=== PATIENT | male | born 1985 | race Caucasian/White ===

== ENCOUNTER 2018-08-20 18:12 | Inpatient (IN) | payer OTHER, MEDICAID ==
[~2018-08-20] VITALS: Ht 172.7 cm; Wt 123.9 kg
[2018-08-20 18:47] LABS: BASOPHIL % 0.3 % (0-2); PLATELET COUNT 267 x10^3mcL (130-400)
[2018-08-20 18:49] LABS: RED CELL DISTRIBUTION WIDTH 15.5 % (11.5-14.5)
[2018-08-20 18:59] LABS: CALCIUM 9.5 mg/dL (8.5-10.1); CARBON DIOXIDE 23.6 mmol/L (21-32); CHLORIDE SERUM 99 mmol/L (98-107); CREATININE SERUM 1.3 mg/dL (0.7-1.3); GFR1 > 60 mL/min; GLUCOSE SERUM 171 mg/dL (74-106); POTASSIUM SERUM 4.1 mmol/L (3.5-5.1); SODIUM SERUM 141 mmol/L (136-145)
[2018-08-20 19:03] LABS: ALBUMIN 4.1 g/dL (3.4-5.0); ALKALINE PHOSPHATASE 88 U/L (46-116); ALT/SGPT 75 U/L (16-63); AST/SGOT 41 U/L (15-37); BILIRUBIN TOTAL 0.7 mg/dL (0.20-1.00)
[2018-08-20 19:05] LABS: TOTAL PROTEIN, SERUM 8.5 g/dL (6.4-8.2)
--- NOTE | 2018-08-20 19:14 | NUR ---
PT AWAKE AND ALERT. PT BIBA WITH C/O C/P X8.5 HOURS WITH SOB AND ANXIETY. PT REPORTS HAVING HX OF CHEST MUSCLE SPASM BUT HAS NOT HAD ANY RELIEF FROM HOME MEDICATIONS. PT WAS DIAPHORETIC, TACHYPNEIC, AND FLUSHED UPON ARRIVAL. PER PARAMEDICS, PT WAS STABLE IN TRANSPORT ASIDE FROM BEING TACHYCARDIC. PT WAS GIVEN 0.4 NITRO SUBLINGUAL AND ASA 324MG. PT ON FULL CM. MSE COMPLETED BY DR ANNE. AT BEDSIDE
--- NOTE | 2018-08-20 19:17 | NUR ---
REPORT GIVEN TO ANTONIO LOT ASSOCIATE NURSE TO ASSUME CARE OF PT
--- NOTE | 2018-08-20 19:52 | NUR ---
PATIENT MEDICATED WITH FENTANYL FOR COMPLAIN TOF CHEST/BACK PAIN. PRESSURE PAIN 10/10.
--- NOTE | 2018-08-20 20:04 | NUR ---
PATIENT WENT FOR CT SCAN.
--- NOTE | 2018-08-20 20:48 | NUR ---
PATIENT RETURN FROM CT SCAN WITH COMPLAINT OF BACK AND CHEST PAIN . MD NOTIFIED. PATIENT NEDICATED WITH MORPHINE.
--- NOTE | 2018-08-20 21:26 | NUR ---
ON LINE RADIOLOGY CALL TO CONFIRM CRITICAL CT FINDING WAS RECEIVED. MD HANEY.
[2018-08-20] MEDS ORDERED: BACLOFEN20 MG PO (21:34)
[2018-08-20] MEDS ORDERED: OXYBUTYNIN CHLOR5 MG PO (21:34)
[2018-08-20] MEDS ORDERED: NORCO1 TA2 PO (21:36)
[2018-08-20] MEDS ORDERED: FIBER0.52 GM PO (21:36)
[2018-08-20] MEDS ORDERED: COLACE100 MG PO (21:36)
--- NOTE | 2018-08-20 22:08 | NUR ---
PATIENT MEDICATED WITH HEPARIN IVP
--- NOTE | 2018-08-20 23:16 | NUR ---
REPORT WAS GIVEN TO CLAUDETTE . PATIENT WILL BE TRANSPORTED TO ROOM 207B.
[2018-08-20 23:17] LABS: MAGNESIUM 1.5 mg/dL (1.8-2.4); PHOSPHOROUS 5.3 mg/dL (2.5-4.9)
[2018-08-20 23:18] LABS: CHOLESTEROL/HDL RATIO 2.9
--- NOTE | 2018-08-20 23:31 | NUR ---
PATIENT WAS AKED TO GIVE URINE SPECIMEN, BUT HE DOES SELF CATH AND WILL DO SAME LATER.
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
[2018-08-21] VITALS (7 sets, daily range): BP systolic 107–144; BP diastolic 70–81
--- NOTE | 2018-08-21 00:12 | NUR ---
PT C/O BACK PAIN 12/31. MORPHINE GIVEN.
--- NOTE | 2018-08-21 02:06 | NUR ---
HEPARIN DRIP INITIATED AT 1800 UNITS/HR. NEXT PTT ORDER AT 0805.
--- NOTE | 2018-08-21 03:41 | NUR ---
PT C/O CHEST PAIN 10/31, MEDICATED WITH MORPHINE.
[2018-08-21 07:01] LABS: BASOPHIL % 0.2 % (0-2); PLATELET COUNT 212 x10^3mcL (130-400)
[2018-08-21 07:18] LABS: RED CELL DISTRIBUTION WIDTH 15.6 % (11.5-14.5)
--- NOTE | 2018-08-21 07:30 | NUR ---
PT IS AAOX4. RESP EVEN AND UNLABORED. LUNG SOUNDS CTA, DIMINISHED BILATERALLY. ON N/C AT 2LPM. NO COUGH OR SOB AT THIS TIME. TELE [address] READING SINUS TACH HR 104BPM. ABDOMEN DISTENDED. BOWEL SOUNDS ACTIVE. PT STATE'S PT HAS A WOUND/REDNESS TO BUTTOCKS, PT REFUSED TO TAKE PICTURE OR ALLOW FOR ASSESSMENT, HE STATES HE IS IN TOO MUCH PAIN AND HAVING SPASMS. PERIPHERAL PULSES PALPABLE. NO EDEMA NOTED. IV CATH TO LAC PATENT WITH FLUIDS AND HEPARIN RUNNING. SITE WNL. CALL LIGHT WITHIN REACH. FALL PROTOCOL FOLLOWED. BED IN LOWEST POSITION. WILL ENDORSE ALL CARE TO NOC RN.
--- NOTE | 2018-08-21 07:30 | NUR ---
PT RESTED AT INTERVALS DURING SHIFT. NO SOB ON O2 2L VIA NC. EXPLAINED TO PT THAT BUTTOCKS/BACK NEED TO BE ASSESSED. ER REPORTED THAT SKIN IS INTACT. UPON ADMISSION ON [facility], STATES PT HAS SMALL PRESSURE ULCER ON THE RIGHT BUTTOCKS. INFORMED PT THAT PICTURE SHOULD BE TAKEN FOR ANY WOUND/PRESSURE ULCER. PT REFUSED. PT DID NOT WANT TO BE MOVED OR TURNED DUE TO PAIN EVEN AFTER PAIN MEDS. PT STATES SOON HE FEELS HE CAN, HE WILL LET THE NURSE KNOW. ENDORSED TO DAY SHIFT RN.
[2018-08-21 07:31] LABS: CALCIUM 8.8 mg/dL (8.5-10.1); CARBON DIOXIDE 20.2 mmol/L (21-32); CREATININE SERUM 1.5 mg/dL (0.7-1.3); MAGNESIUM 1.4 mg/dL (1.8-2.4); POTASSIUM SERUM 5.3 mmol/L (3.5-5.1)
--- NOTE | 2018-08-21 08:13 | NUR ---
TORADOL 30MG IVP FOR SHARP THROBBING PAIN 10/10 TO L SHOULDER, L UPPER BACK AND L SIDE OF CHEST AND ABDOMEN. PT UNABLE TO BE TOUCHED WITHOUT REACTING TO PAIN. CALL LIGHT WITHIN REACH. WILL CONTINUE TO MONITOR. AT BEDSIDE.
--- NOTE | 2018-08-21 08:23 | NUR ---
TORADOL NOTED EFFECTIVE. PT NO SLEEPING, RESP EVEN, SHALLOW AND UNLABORED. NO S/S OF DISTRESS NOTED. CALL LIGHT WITHIN REACH. AT BEDSIDE.
--- NOTE | 2018-08-21 09:18 | NUR ---
NORCO 7.5 MG PO TAKEN FOR SHARP PIERCING PAIN TO UPPER BODY. DUE MEDS GIVEN. FLUIDS ENCOURAGED. PT TAUGHT TO TURN AND REPOSITION FREQUENTLY AND EVERY 2 HOURS. PT VERBALIZED UNDERSTANDING. STATED HE HAS BEEN IN TOO MUCH PAIN TO MOVE SINCE LAST NIGHT. CALL LIGHT WITHIN REACH. AT BEDSIDE.
--- NOTE | 2018-08-21 09:56 | NUR ---
ZOFRAN 4MG IVP GIVEN OF N/V. PT STATED HIS CHEST HAS TIGHTNED AND HE HAS A FEELINGS OF ANXIETY. PT STATES HE FEELS LIKE HIS BODY DOES NOT LIKE NORCO. PT RELIEVED BY ZOFRAN. RESP EVEN AND UNLABORED. NO SOB AT THIS TIME. WILL CONTINUE TO MONITOR.
--- NOTE | 2018-08-21 10:31 | NUR ---
PT'S ABDOMINAL PAIN IS 8/10. AWATING PHARMACY TO VERIFY MORPHINE THEN IT WILL BED GIVEN.
--- NOTE | 2018-08-21 12:08 | NUR ---
DR. PATE MET WITH PT AND REQUESTED INCENTIVE SPIROMETER FOR PT. REQUESTED I/S AND I/S TRAINING FROM R/T.
--- NOTE | 2018-08-21 12:54 | NUR ---
REPORTED TO DR. SIERRA THAT PT PAIN IN NOT UNDERCONTROL. DR. SIERRA REPORTED THAT SHE WILL INCREASE THE MORPHINE. PT DANIEL AWARE.
--- NOTE | 2018-08-21 13:03 | NUR ---
COUNTY AGENT REPORTED PT'S HR 145 BPM. PT IS ANXIOUS AND STATES HE CAN NOT BREATH AND HIS PAIN IS OUT OF CONTROL. PAGED DR. SIERRA. AWAITING CALL BACK. REMAINING AT BEDSIDE WITH PT NOW.
[2018-08-21 13:22] LABS: microscopic required? YES; urine erythrocyte 3+ (NEGATIVE)
--- NOTE | 2018-08-21 13:30 | NUR ---
PT REFUSED PTT DUE TO PAIN. PT SPASMS WHEN TOUCHED. FURNITURE FABRICATOR ASKED TO RETURN IN 25 MIN SO PAIN CAN BE ADDRESSED. FURNITURE FABRICATOR AGREED.
--- NOTE | 2018-08-21 14:10 | NUR ---
TORADOL 30MG IVP FOR CHEST, ARM PAIN. WILL CONTINUE TO MONITOR.
--- NOTE | 2018-08-21 14:15 | NUR ---
AT 1315: PT BECAME ANXIOUS, STATE HE CAN'T BREATH. ATTEMPTED TO SIT UP AT BEDSIDE. PT WAS SOB, PALE, DIAPHORETIC. PANICKING. PT WAS UNABLE TO COMFORT HIMSELF. PT PULLED OFF N/C. ATTEMPTED TO OBTAIN VS BUT PT SCREAMED, " IT HURTS TOO MUCH, DON'T TOUCH ME!" CALLED FOR HELP, ANOTHER NURSE, RYLEY RN RESPONDED. APPLIED NON REBREATHER AT 15LPM. REPOSITIONED PT. AT BEDSIDE. PT RESTLESS, AGITATED, THRASHING BACK AND FORTH. CHARGE NURSE AT BEDSIDE, RAPID RESPONSE CALLED. RESP THERAPY NOTIFIED. DR. SIERRA ATTENDING RESIDENT AWARE OF ABOVE INCIDENT. RAPID RESPONSE TEAM RESPONDED IMMEDIATELY. BLOOD SUGAR: 183MGDL, VS FOLLOWS: 98.1F, HR 145, RR 34, BP 123/45, PAIN LEVEL 8/10 CHEST AND NONRADIATING. O2 SAT 98% ON 15LPM NON REBREATHING MASK. PLEASE SEE DETAILS OF RAPID RESPONSE PAPER. DR. SIERRA ORDERED LABS, CHEST XRAY, EKG STAT. AT 1340 MORPHINE 2MG IVP GIVEN. PT VERBALIZED RELIEF AFTER MORPHINE WAS GIVEN. PT STARTING CALM, ABLE TO BREATH DEEPLY AND TALK TO .
[2018-08-21 14:20] LABS: PLATELET COUNT 186 x10^3mcL (130-400)
--- NOTE | 2018-08-21 14:20 | NUR ---
CHEST XRAY COMPLETED.
--- NOTE | 2018-08-21 14:23 | NUR ---
PT RECEIVING U/S VENOUS BILATERAL LOWER EXTREMITIES AT THIS TIME.
--- NOTE | 2018-08-21 14:29 | NUR ---
REPORTED TO DR. CHAPIN THAT PT'S WBC 20.9 AND ABG pH 7.25. NO NEW ORDERS AT THIS TIME.
[2018-08-21 14:32] LABS: CALCIUM 7.9 mg/dL (8.5-10.1); CARBON DIOXIDE 24.5 mmol/L (21-32); CREATININE SERUM 2.1 mg/dL (0.7-1.3)
[2018-08-21 14:43] LABS: POTASSIUM SERUM 5.8 mmol/L (3.5-5.1)
--- NOTE | 2018-08-21 14:46 | NUR ---
PAIN REASSESED POST TORADOL IVP. PT STATES PAIN HAS IMPROVED. NOW 07/01. PT IS STILL RECEIVING VENOUS U/S.
[2018-08-21 14:56] LABS: BAND NEUTROPHIL 16 % (0-10); BASOPHIL 0 % (0-2); MONOCYTE 4 % (0-7); SEGMENTED NEUTROPHILS 73 % (37-75)
[2018-08-21 14:58] LABS: PLATELET MORPHOLOGY PLATELETS NORMAL; rbc morphology (normal/abnorm) NORMAL (NORMAL)
--- NOTE | 2018-08-21 15:20 | NUR ---
CALLED LAB TO GET UP DATE ON PROGRESS OR PTT. LAB STATED THEY ARE RUNNING THE TEST RIGHT NOW.
--- NOTE | 2018-08-21 15:53 | NUR ---
PT'S PTT IS 70.4. HEPARIN DRIP TITRATED TO 1800ML/HOUR / 18ML/HR. NEW PTT ORDERED FOR 1999. REPORTED CHEST XRAY RESULTS AND THAT U/S TECH STATED PT HAS DVT IN R LEG BUT READING STILL NEEDS TO BE COMPLETED. REPORTED TO DR. SIERRA THAT PT'S WBC =20.9, ABG pH=7.25, K+ = 5.8, AND LACTIC ACID 3.6. DR. SIERRA SAID SHE WOULD FOLLOW UP.
--- NOTE | 2018-08-21 15:53 | NUR ---
PT'S PTT IS 70.4. HEPARIN DRIP TITRATED TO 1800ML/HOUR / 18ML/HR. NEW PTT ORDERED FOR 1999. REPORTED CHEST XRAY RESULT REPORTED TO DR. SIERRA THAT PT'S WBC =20.9, ABG pH=7.25, K+ = 5.8, AND LACTIC ACID 3.6. DR. SIERRA SAID SHE WOULD FOLLOW UP.
--- NOTE | 2018-08-21 17:07 | NUR ---
VELTESSA AND INSULIN 6 UNITS IVP GIVEN.
--- NOTE | 2018-08-21 17:16 | NUR ---
ATIVAN 2MG IVP GIVEN FOR EXTREME ANXIETY. PT STATES, " I AM FEAR FOR MY LIFE, YOU CAN SEE IT."
--- NOTE | 2018-08-21 17:40 | NUR ---
PT IS SLEEPING AT THIS TIME. RESP EVEN AND UNLABORED. NO SOB. WILL CONTINUE TO MONITOR. CALL LIGHT WITHIN REACH.
--- NOTE | 2018-08-21 19:00 | NUR ---
PT IS AAOX4. PT IS SLEEPING AT TIME BUT EASILY AROUSABLE. RESP EVEN AND UNLABORED. NO DISTRESS NOTED. ON O2 AT 3LPM N/C. IV CATH TO LAC WITH FLUIDS AND HEPARIN RUNNING. SITE WNL. IV CATH TO RAC WITH ABX RUNNING. SITE WNL. TELE [address] READING SINUS TACH. BED IN LOW POSITION. CALL LIGHT WITHIN REACH. FALL PROTOCOL FOLLOWED. WILL ENDORSE ALL CARE TO NOC SHOLA.
--- NOTE | 2018-08-21 19:30 | NUR ---
PER DR SIERRA THAT PT OKAY TO HAVE SIP OF WATER AT THIS TIME.
--- NOTE | 2018-08-21 19:45 | NUR ---
BEDSIDE HANDOFF REPORT RECEIVED FROM ALEX-SHOLA, PT SEEN, ASLEEP BUT EASILY AROUSABLE, ALERT AND ORIENTED X 4 AND VERY VERBALLY RESPONSIVE, DENIES HEADACHE OR DIZZINESS, BREATHING EVEN AND UNLABORED, LUNG SOUNDS DIMINISHED, ON O2 4L VIA NC WITH CONT PUSLE OX MONITOR AND MAINTAIN SPO2 > 95%, PT DE-SATS WITH 3 LITERS, RT PROTOCOL, PULSES PALPABLE, EDEMA NOTED TO BLE, TOTAL CARE, PARAPEGLIC, ON TELE#23 STA WITH HE:130'S TO 140'S, DR SIERRA MADE AWARE, IVF INFUSING WELL, HEPARIN DRIP INFUSING @ 1800 UNITS/HR, ABD ROUND WITH ACTIVE BS, NO BM AT THIS TIME, PT WITH NEUROGENIC BLADDER, SELF CATH AT TIMES, PT WITH PRESSURE INJURY TO RT BUTTOCKS BUT PT REFUSED SKIN ASSESSMENT, NO DISTRESS NOTED, AT BEDSIDE, WILL KEEP TO MONITOR.
[2018-08-21 20:50] LABS: CALCIUM 7.9 mg/dL (8.5-10.1); CARBON DIOXIDE 19.7 mmol/L (21-32); CREATININE SERUM 2.6 mg/dL (0.7-1.3)
[2018-08-21 20:53] LABS: POTASSIUM SERUM 6.5 mmol/L (3.5-5.1)
--- NOTE | 2018-08-21 21:02 | NUR ---
DR HERNANDES MADE AWARE OF PT'S K:6.5, NO NEW ORDER RECEIVE AT THIS TIME.
--- NOTE | 2018-08-21 21:18 | NUR ---
PT'S PTT-50.5 PER HEPARIN DRIP PROTOCOL THAT NO CHANGE, NEXT PTT ORDERED @ 0030.
[2018-08-22] VITALS (11 sets, daily range): BP systolic 81–149; BP diastolic 37–91
--- NOTE | 2018-08-22 02:43 | NUR ---
PT'S PTT RESULT-58.5, PER HEPARIN DRIP PROTOCOL NO CHANGE, NEXT PTT WILL BE DAILY 06/02 AM.
--- NOTE | 2018-08-22 05:34 | NUR ---
PT ASLEEP BUT EASILY AROUSABLE, SLEPT ON AND OFF WHOLE NIGHT, IVF INFUSING WELL TO RH, C/O OF GENERALIZED BODY PAIN DURING THE SHIFT, MEDICATED WITH MORPHINE 4MG VIA IVP X 2 WITH GOOD RELIEF, PT ON O2 4L VIA NC AND ABLE TO MAINTAIN SPO2 > 95%, EASILY ANXIOUS, AT BEDSIDE, PT TOTAL ONLY HAD 150 ML URINE OUTPUT FROM SELF CATH DURING THE WHOLE NIGHT, DR HERNANDES MADE AWARE, NO NEW ORDER RECEIVE AT THIS TIME.
[2018-08-22 05:41] LABS: PLATELET COUNT 140 x10^3mcL (130-400)
[2018-08-22 05:47] LABS: CALCIUM 7.4 mg/dL (8.5-10.1); CARBON DIOXIDE 21.2 mmol/L (21-32); CREATININE SERUM 3.7 mg/dL (0.7-1.3); MAGNESIUM 1.2 mg/dL (1.8-2.4); PHOSPHOROUS 3.9 mg/dL (2.5-4.9)
[2018-08-22 05:49] LABS: POTASSIUM SERUM 6.9 mmol/L (3.5-5.1)
--- NOTE | 2018-08-22 05:50 | NUR ---
PT'S MORNING K:6.9, DR HERNANDES MADE AWARE, NO NEW ORDER RECEIVE AT THIS TIME.
[2018-08-22 05:52] LABS: AMYLASE 1117 U/L (25-115); LIPASE 3409 IU/L (73-393)
[2018-08-22 07:01] LABS: RED CELL DISTRIBUTION WIDTH 16.3 % (11.5-14.5)
--- NOTE | 2018-08-22 07:18 | NUR ---
BEDSIDE REPORT GIVEN TO ALEX-SHOLA, ALL QUESTIONS ANSWERED AND CONCERNS ADDRESSED. ENDORSED VELTASSA PO TO AM NURSE DUE TO PT TOOK BACLOFEN PO @ 0500, VELTASSA PO SCHEDULED @ 0800AM.
--- NOTE | 2018-08-22 07:20 | NUR ---
RECEIVED REPORT FROM ALEX JOLLEY(ASSIGNED TO THIS PT) THAT PT K-6.9, MG-1.2 AND URINE OUTPUT FOR 12HRS WAS ONLY 150ML. PT WITH JOHNATHAN P.E. AND JOHNATHAN DVT AND CURRENTLY ON HEPARIN DRIP. CALLED AND SPOKE TO JOSELITO(N.P.) ASSIGNED TO THIS PT AND MADE HER AWARE OF ABOVE. NEW ORDER RECEIVED TO TRANSFER PT IN ICU. ALEX JOLLEY AWARE OF ABOVE. CALLED TO ICU AND SPOKE TO RENO CHARGE NURSE AND MADE HER AWARE OF ABOVE. CALLED TO ENVIRONMENTAL ENGINEERING MANAGER(CHRISTINA) AND MADE HER AWARE OF ABOVE. PT GOING TO BED8. ALEX JOLLEY INFORMED PT OF TRANSFER.
--- NOTE | 2018-08-22 07:25 | NUR ---
EYAL PO GIVEN. PT AND PT'S AWARE THAT HE WILL BE GOING TO ICU.
--- NOTE | 2018-08-22 07:30 | NUR ---
PT IS AAOX4. RESP SHALLOW, UNLABORED. LUNG SOUNDS DIMINISHED BILATERALLY. PT ON 3 LPM N/C. NORMAL S1S2 NOTED. ABDOMEN ROUND, DISTENDED, TENDER UPON PALPATION. BOWEL SOUNDS ACTIVE X4. PT NPO. PERIPHERAL PULSES PALPABLE. NO EDEMA NOTED. PT REPORTS SKIN PROBLEM ON BUTTOCK AREA BUT REFUSES TO MOVE TO HAVE THE AREA ASSESSED PT HAVING FREQUENT SPASMS WHEN TOUCHED. DENIES PAIN MEDICATION AT THIS TIME. IV CATH TO RAC WITH FLUIDS AND HEPARIN RUNNING. SITE WNL, NO S/S OF INFECTION OR INFILTRATION. IV CATH TO LAC, N/S LOCKED. SITE WNL. AT BEDSIDE. CALL LIGHT WITHIN REACH. BED IN LOWEST POSITION.
--- NOTE | 2018-08-22 07:45 | NUR ---
MORNING LABS REVIEWED. ALL LABS TRENDING TO UNSTABLE. TRANSFERRING PT TO ICU. GAVE REPORT TO SHOLA HASTINGS WHO ASSUMED ALL CARE OF PT AND TRANSFERRED PT TO ICU.
--- NOTE | 2018-08-22 08:06 | NUR ---
TRANSFERED PT TO ICU BED 4 FOR CLOSER OBSERVATION. CONTINUES ONHEPARIN 1800 UNITS Q 1 HOUR LEFT AC. NS INFUSING 150 CC HOUR TO RT FA. ON 02 3L NC. HR 126. BP 149/67 . SAT 94 % 2L. PT ASKS TO BE LEFT ALONE AWHILE HIS MUSCLE SPASMS HAVE CALMED DOWN AND BREATHING MORE FREELY. HOB ELEVATED FOR PTS COMFORT AND REQUEST. CALL LIGHT WITHIN REACH. STALIN RN HERE TO TAKE OVER CARE.
--- NOTE | 2018-08-22 08:15 | NUR ---
RECD PT SLEEPING BUT AROUSABLE TO TOUCH. PER REPORT PT WAS [facility] AT 0742. OX4. STATES, "DONT TOUCH ME, MOVE ME, AND LEAVE ME THE WAY I AM; I HAVE VERY BAD SPASM ON MY LEGS". RESP EASY AND REGULAR; DENIES ANY PAIN AT THIS TIME BUT STATES HE FEELS HOT AND WANT A COOLER TEMP IN THE ROOM. IVF NSS AT 150 ML/HR INFUSING VIA RH SITE; HEPARIN GTT AT 1800 U (18 ML)/HR VIA LAC SITE; BOTH IVF SITES PATENT AND WITHOUT INFILTRATION. PT IS PARALYZED FROM WAIST DOWN. ABD IS ROUND AND SOFT; BS+ ON 4 QUADS; NPO EXCEPT MEDS; PT PERFORMS SELF CATH Q 4 HRS ACCDG TO HIM. NSG ASSESSMENT DONE; FALL AND SAFETY PRECAUTION REINFORCED; WILL CONTINUE TO MONITOR STATUS. GIRLFRIEND PRESENT IN THE ROOM.
--- NOTE | 2018-08-22 09:00 | NUR ---
ARBEN YEE, IS HERE AND MADE AWARE OF LAB RESULTS. MAY GIVE ICE CHIPS TO PT PER JOSELITO.
--- NOTE | 2018-08-22 10:00 | NUR ---
DR. LERMA IS ASSESSING PT; PT SIGNED THE CONSENTS FOR HEMODIALYSIS, NERI CATH PLACEMENT AND MODERATE ANESTHESIA.
--- NOTE | 2018-08-22 10:34 | NUR ---
OSCAR IN THE ROOM PERFORMING ULTRASOUND OF THE KIDNEY/RENAL; DR. GALEANO IS ALSO HERE AND TALKED TO PT.
--- NOTE | 2018-08-22 11:08 | NUR ---
PT IS NAUSEATED; ADMINISTERED ZOFRAN IV PRN.
[2018-08-22 11:39] LABS: SEGMENTED NEUTROPHILS 28 % (37-75)
[2018-08-22 11:40] LABS: BAND NEUTROPHIL 62 % (0-10); MONOCYTE 5 % (0-7); PLATELET MORPHOLOGY LARGE PLATELET SEEN; rbc morphology (normal/abnorm) ABNORMAL (NORMAL)
--- NOTE | 2018-08-22 12:10 | NUR ---
DR. GALEANO ATTEMPTED TO INSERT NERI CATH ON THE RT GROIN AND RT SUBCLAVIAN BUT UNSUCCESSFUL ATTEMPT. HE INFORMED PT THAT HE WILL INSERT THE NERI CATH AT OR.
--- NOTE | 2018-08-22 12:30 | NUR ---
MAHONEY CATHETER FR. 16 INSERTED AND OBTAINED DARK YELLOW ORANGE URINE; 50 ML CAME OUT, SPECIMEN COLLECTED AND SENT TO LAB.
--- NOTE | 2018-08-22 12:58 | NUR ---
CXR (NOW ORDER) ORDERED BY DR. CROWE TO R/O PNEUMOTHORAX.
--- NOTE | 2018-08-22 13:45 | NUR ---
PRE-OP CHECKLIST AND PRE-OP WIPES DONE; PT WAS BROUGHT TO ER FOR HEMO CATH INSERTION; REPORT GIVEN TO OR; OX4; NO SOB; ANESTHESIOLOGIST AND OR TEAM AWARE OF THE ABNORMAL LABS BRANDON POTASSIUM AND THE MEDS GIVEN. GIRLFRIEND IS PRESENT.
[2018-08-22 13:52] LABS: microscopic required? YES
[2018-08-22 13:54] LABS: urine erythrocyte 3+ (NEGATIVE)
--- NOTE | 2018-08-22 14:00 | NUR ---
JENNIFER BENNETT CALLED FOR PT WHILE HE IS IN OPERATING ROOM.
--- NOTE | 2018-08-22 14:45 | NUR ---
DR. LERMA CALLED TO INQUIRE ABOUT PT'S STATUS; DR. LERMA UPDATED.
[2018-08-22 14:56] LABS: PLATELET COUNT 115 x10^3mcL (130-400); RED CELL DISTRIBUTION WIDTH 16.4 % (11.5-14.5)
--- NOTE | 2018-08-22 15:05 | NUR ---
LAB CALLED TO INFORM WBC DECREASED TO 17.1 FROM 22.4; AND HGB IS 10.3 FROM 13.
[2018-08-22 15:16] LABS: BILIRUBIN TOTAL 1.54 mg/dL (0.20-1.00); CALCIUM 8.1 mg/dL (8.5-10.1)
[2018-08-22 15:22] LABS: CREATININE SERUM 4.7 mg/dL (0.7-1.3); TOTAL PROTEIN, SERUM 5.2 g/dL (6.4-8.2)
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
[2018-08-22 15:39] LABS: BAND NEUTROPHIL 20 % (0-10); BASOPHIL 0 % (0-2); MONOCYTE 2 % (0-7); SEGMENTED NEUTROPHILS 64 % (37-75)
[2018-08-22 15:45] LABS: rbc morphology (normal/abnorm) ABNORMAL (NORMAL)
--- NOTE | 2018-08-22 15:45 | NUR ---
JOHNATHAN SOFT WRIST RESTRAINTS APPLIED FOR PT'S SAFETY TO PREVENT PT FROM PULLING LINES AND TUBES.
[2018-08-22 15:47] LABS: PLATELET MORPHOLOGY PLATELETS DECREASED
--- NOTE | 2018-08-22 16:37 | NUR ---
RECEIVED PT IN ICU INTUBATED, PLACED ON [employer]ES[employer]E R860 VENTILATOR PER VENT SETTINGS BY DR СВЕТЛАНА TREJO IN ICU.
--- NOTE | 2018-08-22 18:33 | NUR ---
1602-STAT CXR DONE; 161-DR. RED (CORE WINDER MACHINE OPERATOR) IS HERE AND ASSESSING PT. 162-CXR RESULT CALLED TO DR. WILKINS PER HIS ORDER 170-IVFS STARTED FOLLOWS: VERSED AT 0.5 MG/ML OR 2 ML/HR, FENTANYL AT 1 MCG/KG/HR, LEVOPHED AT 2 MCG/MIN; ALL VIA RT NERI; AMIODARONE BOLUS ADMINISTERERED VIA RH IVF SITE; AFTER AMIODARONE BOLUS, IT IS FOLLOWED BY AMIODARONE GTT AT 1 MG/MIN X 6 HRS THEN 0.5 MG/MIN X18 HRS. EKG DONE AT THIS TIME. FAMIILY IN THE ROOM 174-PT CONVERTED TO NSR; PRINTOUT PLACED IN CHART. FAMILY IN THE ROOM; PT IS TOLERATING SAME SETTINGS; STILL NONRESPONIVE BUT NOT IN ANY DISTRESS 184-LEVOPHED INCREASED TO 4 MCG/MIN. BP I S 80/50 P
--- NOTE | 2018-08-22 19:05 | NUR ---
RECIEVED REPORT FROM STALIN JOLLEY. ALL QUESTIONS ANSWERED AND ADDRESSED. WILL RESUME CARE.
--- NOTE | 2018-08-22 19:30 | NUR ---
RECIEVED PT INTUBATED AND SEDATED ON VERSED @ 1MG/HR AND FENTANYL @ 1MCG/KG/HR. RESPONDS TO TACTILE AND PAINFUL STIMULUS. ETT AND OGT INTACT. ETT TO VENT: VCV/AC MODE = 100% FIO2, 550 VT, 16 RATE, 5 PEEP. BREATHING E/U. NO SIGNS OF RESP DISTRESS NOTED. NSR. S1/S2 HEART SOUNDS AUDIBLE. RIJ NERI CATH INTACT AND SECURED, DRESSING CDI. L HAND ARTERIAL LINE INTACT AND SECURED. PIV TO L HAND AND R HAND INTACT, PORTS PATENT, DRESSINGS CDI. AMIODARON INFUSING @ 1 MG/MIN, LEVOPHED INFUSING @ 4MCG/MIN, NS INFUSING @ 150 ML/HR, AND HEPARIN INFUSING @ 1800 UNITS/HR. ABD IS SOFT AND ROUNDED. F/C INTACT AND SECURED, DRAINING VIA GRAVITY. URINE IS HERB IN COLOR. POOR OUTPUT. BILATERAL SOFT WRIST RESTRAINTS APPLIED. JOINTS INTACT, NO JOINT SWELLING NOTED. X3 SIDE RAILS UP, BED IN LOWEST POSITION, HOB 30 DEGREES. SIGNIFICANT OTHER AT BEDSIDE.
--- NOTE | 2018-08-22 21:08 | NUR ---
PT HAS A TEMP OF 101.8. MEDICATED PER EMAR. COOLING MEASURES IMPLEMENTED. WILL CONTINUE TO MONITOR.
--- NOTE | 2018-08-22 23:00 | NUR ---
TITRATED AMIODARONE TO 0.5 MG/MIN. HR = 88. PT TOLERATING WELL. WILL CONTINUE TO MONITOR.
[2018-08-23] VITALS (19 sets, daily range): BP systolic 94–130; BP diastolic 37–60
--- NOTE | 2018-08-23 00:50 | NUR ---
TITRATED LEVOPHED TO 3 MCG/MIN. BP = 120/49 (73). WILL CONTINUE TO MONITOR.
--- NOTE | 2018-08-23 04:20 | NUR ---
PT HAD A MOD AMOUNT OF GREEN SOFT STOOL. PT CLEANED, CHG WIPES APPLIED, MAHONEY CARE COMPLETED, AND LINENS AND GOWN CHANGED. PT TOLERATED WELL. VS STABLE.
--- NOTE | 2018-08-23 04:36 | NUR ---
TITRATED LEVOPHED TO 2 MCG/MIN. BP = 113/46 (65). WILL CONTINUE TO MONITOR.
[2018-08-23 06:06] LABS: BILIRUBIN TOTAL 1.64 mg/dL (0.20-1.00); CARBON DIOXIDE 20.6 mmol/L (21-32); MAGNESIUM 1.8 mg/dL (1.8-2.4)
[2018-08-23 06:12] LABS: PLATELET COUNT 123 x10^3mcL (130-400); RED CELL DISTRIBUTION WIDTH 16.2 % (11.5-14.5)
[2018-08-23 06:14] LABS: ALBUMIN 2.1 g/dL (3.4-5.0); TOTAL PROTEIN, SERUM 5.8 g/dL (6.4-8.2)
[2018-08-23 06:15] LABS: CREATININE SERUM 5.7 mg/dL (0.7-1.3)
[2018-08-23 06:16] LABS: CALCIUM 5.9 mg/dL (8.5-10.1)
[2018-08-23 06:20] LABS: BAND NEUTROPHIL 17 % (0-10); MONOCYTE 5 % (0-7); SEGMENTED NEUTROPHILS 70 % (37-75)
[2018-08-23 06:22] LABS: PLATELET MORPHOLOGY PLATELETS DECREASED; rbc morphology (normal/abnorm) ABNORMAL (NORMAL)
--- NOTE | 2018-08-23 06:49 | NUR ---
TRIED CALLING FIELD SERVICE SUPERVISOR MULTIPLE TIMES BECAUSE OF CRITICAL LAB VALUES: 57.0 BUN AND 5.7 CREAT. NO ANSWER. WILL ENDORSE TO ONCOMING RN
--- NOTE | 2018-08-23 07:15 | NUR ---
GIVEN REPORT TO EVE JOLLEY. ALL QUESTIONS ANSWERED AND ADDRESSED. WILL ENDORSE CARE
--- NOTE | 2018-08-23 07:20 | NUR ---
D MUTUC SOFTWARE CONFIGURATION ENGINEER AT BEDSIDE TO ASSESS PT. UPDATED ON LABS. INFORMED OF DISTENDED/FIRM ABDOMEN. KUB ORDERED. ABG ORDERED.
--- NOTE | 2018-08-23 07:24 | NUR ---
LAB CALLED WITH PTT 72.4, HEPARIN DRIP TITRATED DOWN TO 150 U/HR PER PROTOCOL. NEXT PTT ORDERED FOR 1130. SHOLA PRADO MADE AWARE.
--- NOTE | 2018-08-23 08:49 | NUR ---
TEMPERATURE RECHECK 100.1. ICE PACKS REFRESHED.
--- NOTE | 2018-08-23 08:50 | NUR ---
FI02 TITRATED DOWN TO 50% BY RT STEPHANE. CURRENT 02 SAT 99%. NO SIGNS OF RESP DISTRESS. WILL CONTINUE TO MONITOR.
--- NOTE | 2018-08-23 09:00 | NUR ---
A LINE BP 119/46 (69), NIBP 107/55 (71) LEVOPHED TITRATED FROM 2 MCG/MIN TO 1 MCG/MIN. WILL CONTINUE TO MONITOR
--- NOTE | 2018-08-23 09:16 | NUR ---
SPOKE WITH DR. LERMA VIA TELEPHONE. UPDATED ON PT NOT RECEIVING HD DURING NIGHT AND CURRENT LABS. PER DR. LERMA ASK HD RN TO COME AND HE WILL INPUT ORDERS UPON ARRIVAL TO UNIT
--- NOTE | 2018-08-23 09:27 | NUR ---
ISOGEL MATRESS APPLIED.
--- NOTE | 2018-08-23 09:49 | NUR ---
A LINE BP 124/45 (69), NIBP 108/63 (73). LEVOPHED TITRATED FROM 1 MCG/MIN TO OFF.
--- NOTE | 2018-08-23 10:01 | NUR ---
DR. LI AT BEDSIDE SPEAKING WITH PT'S FAMILY MEMBERS. PLAN IS TO ALLOW PT TO REST ON VENTILATOR TODAY AND BEGIN ATTEMPTING CPAP TOMORROW IF PT TOLERATES.
--- NOTE | 2018-08-23 10:13 | NUR ---
TEMP RECHECK 101.5. ICE PACKS REAPPLIED. PREVIOUSLY RECEIVED TYLENOL DOSE PER EMAR.
--- NOTE | 2018-08-23 11:29 | NUR ---
A LINE 104/50 (60) NIBP 92/49 (59). LEVOPHED TURNED ON TO 0.5 MCG/MIN R/T PT'S SENSITIVITY.
--- NOTE | 2018-08-23 12:14 | NUR ---
FI02 TITRATED DOWN TO 30% BY RT STEPHANE. CURRENT 02 SAT 100%. NO SIGNS OF RESP DISTRESS. WILL CONTINUE TO MONITOR.
--- NOTE | 2018-08-23 12:49 | NUR ---
D ADRIEL RAND SEWER MADE AWARE OF KUB RESULTS
--- NOTE | 2018-08-23 12:56 | NUR ---
PTT 38.4. HEPARIN INCREASED TO 1800 UNITS/HR PER PROTOCOL. BOLUS OMITTED R/T ORIGINAL THERAPEUTIC RATE. PTT REORDERED FOR 4 HOURS
--- NOTE | 2018-08-23 13:31 | NUR ---
DR. HOANG CALLED FOR UPDATES ON PATIENT. UPDATES PROVIDED. RECIEVED NEW ORDERS TO GIVE MAGNESIUM HYDROXIDE 30 ML NG BID AND PEPCID IVP. NO INDICATION FOR PATIENT TO BE SCOPED AT THIS TIME. SHOLA PRADO MADE AWARE.
--- NOTE | 2018-08-23 13:56 | NUR ---
TEMP RECHECK 99.8. ICE PACKS REAPPLIED
--- NOTE | 2018-08-23 18:00 | NUR ---
A LINE BP 126/50 (72). LEVOPHED TITRATED FROM 0.5 MCG/MIN TO OFF
--- NOTE | 2018-08-23 18:13 | NUR ---
HD COMPLETE AT THIS TIME. 1L REMOVED. PT TOLERATED WELL
--- NOTE | 2018-08-23 18:21 | NUR ---
PTT 45. BOLUS OMITTED LAST DRAW. WILL REMAIN AT 1800 UNITS/HR. PTT REORDERED 4 HOURS FROM LAST DRAW
--- NOTE | 2018-08-23 19:05 | NUR ---
RECEIVED REPORT FROM EEV JOLLEY. ASSUMING ALL CARE
--- NOTE | 2018-08-23 19:45 | NUR ---
RECEIVED PT LAYING IN BED. PT IS INTUBATED AND SEDATED ON FENTANYL @ 1 MCG/KG/HR AND VERSED @ 0.5 MG/HR. PT RESPONDS TO TACTILE STIMULI. RSS=4. PT NOT FOLLOWING COMMANDS AT THIS TIME. NO GAG REFLEX PRESENT. PUPILS WITH SLUGGISH RESPONSE TO LIGHT, 4 MM BILAT. NO FACIAL DROOP NOTED. 7.5 ETT INTACT/SECURED, 22 CM @ LL. OGT INTACT/SECURED. RIJ NERI CATH WITH DRESSING CDI. TRACHEA MIDLINE. BREATHING IS E/U ON VENT. VENT SETTINGS: VCV/AC MODE, RATE 16, VT 550, FIO2 30%, PEEP 5. LUNGS SOUND CLEAR TO BUL AND DIMIN TO BLL. SYMMETRICAL CHEST EXPANSION NOTED. S1/S2 HEART SOUNDS AUSCULTATED. CHEST WALL EQUAL AND SYMMETRICAL. NO S/S OF CP NOTED. PT CONNECTED TO FULL FIBROUS WALLBOARD INSPECTOR, HR 101, ARTERIAL BP 123/41, MAP 66. ARTERIAL LINE NOTED TO LW ARTERIAL LINE WITH DRESSING CDI. MOD PULSES NOTED TO BUE, WEAK NOTED TO BLE. CAP REFILL < 3 SECS. LH AND RH IV IN PLACE WITH NO S/S OF INFITLRATION NOTED. LEVAQUIN INFUSING @ 100 ML/HR AND HEPARIN GTT INFUSING @ 1800 UNITS/HR. +1 PITTING EDEMA NOTED TO BLE AND NONPITTING EDEMA NOTED BUE. SKIN IS WARM AND DRY. GENERALIZED WEAKNESS. PT ON BEDREST. BILAT SOFT WRIST RESTRAINT APPLIED FOR PT SAFETY. GOOD CIRCULATION NOTED. PT PARAPLEGIC AT BASELINE. PT IS NPO AT THIS TIME. ABD IS FIRM/DISTENDED. OGT ATTACHED TO LIS WITH BILE COLORED DRAINAGE NOTED. BOWEL SOUNDS HYPOACTIVE X4 QUADRANTS. NO BM NOTED. MAHONEY IN PLACE, DRAINING VIA GRAVITY WITH HERB COLORED URINE NOTED. POOR URINE OUTPUT. RIJ NERI IN PLACE WITH DRESSING CDI. SKIN IS INTACT. ERYTHEMA NOTED TO SACRAL AREA. PT ON ISOGEL MATTRESS. AXILLARY TEMP 101.8. COOLING MEASURES IN PLACE. WILL MEDICATE WITH TYLENOL PER EMAR. FAMILY AT BEDSIDE. BED IN LOW POSITION. CALL LIGHT IN REACH. WILL CONT TO MONITOR
--- NOTE | 2018-08-23 20:22 | NUR ---
AXILLARY TEMP 101.8. PT MEDICATED WITH TYLENOL 650 MG PER EMAR. OGT SUCTION TURNED OFF AT THIS TIME. COOLING MEASURES IN PLACE. WILL CONT TO MONITOR.
--- NOTE | 2018-08-23 21:15 | NUR ---
LEGAL INVESTIGATOR AT BEDSIDE FOR PTT LAB DRAW
--- NOTE | 2018-08-23 22:35 | NUR ---
PTT 60.5. PER HEPARIN PROTOCOL, NO CHANGE TO CURRENT HEPARIN RATE. WILL ORDER PTT FOR 02:30
[2018-08-24] VITALS (17 sets, daily range): BP systolic 97–162; BP diastolic 41–99
--- NOTE | 2018-08-24 03:17 | NUR ---
AXILLARY TEMP 100.4. COOLING MEASURES REMAIN IN PLACE. PT MEDICATED WITH TYLENOL 650 MG PER EMAR. OGT SUCTION TURNED OFF AT THIS TIME. WILL CONT TO MONITOR.
--- NOTE | 2018-08-24 04:00 | NUR ---
PTT 63.1. PTT THERAPEUTIC X2. PER HEPARIN PROTOCOL, ORDER PTT DAILY. PTT ORDER ALEADY IN PLACE FOR 06:00. HEPARIN DRIP REMAINS INFUSING @ 1800 UNITS/HR
[2018-08-24 06:13] LABS: CARBON DIOXIDE 24.8 mmol/L (21-32)
[2018-08-24 06:19] LABS: CREATININE SERUM 5.6 mg/dL (0.7-1.3); PLATELET COUNT 146 x10^3mcL (130-400)
[2018-08-24 06:21] LABS: CALCIUM 5.6 mg/dL (8.5-10.1)
--- NOTE | 2018-08-24 06:30 | NUR ---
FULL BED BATH PROVIDED. GOWN AND LINENS CHANGED. ORAL, MAHONEY, AND PERICARE PROVIDED. 2 SKIN TEARS NOTED TO SACRAL AREA ALONG WITH BLISTERS. OPTIFOAM IN PLACE. PT REMAINS ON ISOGEL MATTRESS. ECCHYMOSIS NOTED TO BUE. PICTURES TAKEN AND PLACED IN THE CHART
--- NOTE | 2018-08-24 07:10 | NUR ---
REPORT GIVEN TO MARY JOLLEY FOR CONTINUITY OF CARE. ALL QUESTIONS/CONCERNS ADDRESSED AT THIS TIME. ENDORSING ALL CARE
--- NOTE | 2018-08-24 07:15 | NUR ---
PATIENT IN BED, BED IS TO THE LOWEST POSITION. PATIENT IS INTUBATED AND SEDATED ON FENTANYL INFUSING AT 1 MCG/KG/HR AND VERSED INFUSING AT 0.5 MG/HR. RSS: 4. PATIENT IS INTUBATED AT 7.5 ETT AND 22 LL. PATIENT IS VENTED ON AC MODE AT A RATE OF 16, FIO2: 30%, PEEP OF 5 AND RATE OF 16. PATIENT IS BREATHING ADEQUATELY AND THERE ARE NO SIGNS OF RESPIRTATORY DISTRESS. DRY CELL SEALER IN PLACE, NSR. PATIENT HAS A L AND R HAND IV. NS INFUSING AT 75 ML/HR, HEPARIN INFUSING AT 1800 UNITS/ HR. ARTERIAL LINE NOTED TO L HAND. PATIENT HAS A RIJ NERI, INTACT. BILATERAL SOFT WRIST RESTRAINTS. CAP REFILL LESS THAN 3 SECONDS, 2 FINGER SPACE NOTED. MAHONEY INTACT AND DRAINING POOR OUTPUT, OF DARK HERB COLOR URINE. PATIENTS HEELS ARE OFF LOADED WITH PILLOWS, FAMILY AT BEDSIDE. PATIENT STABLE, WILL CONITNUE TO MONITOR.
--- NOTE | 2018-08-24 07:15 | NUR ---
REPORT GIVEN BY SHOLA MONTOYA. ALL QUESTIONS ANSWERED.
[2018-08-24 07:36] LABS: BASOPHIL % 0 % (0-2); RED CELL DISTRIBUTION WIDTH 16.3 % (11.5-14.5)
--- NOTE | 2018-08-24 07:53 | NUR ---
AT BEDSIDE, PER INITIATE SEDATION VACATION, ALL SEDATION TURNED OFF AT THIS TIME, PRIMARY RN MARY HANEY.
--- NOTE | 2018-08-24 07:53 | NUR ---
PTT AT THIS TIME: 59.2, NO CHANGE AT THIS TIME. WILL ORDER NEXT LAB.
--- NOTE | 2018-08-24 07:54 | NUR ---
PTT THERAPEUTIC AT THIS TIME, REPEAT PTT ORDERED FOR 08/25/18 0500.
--- NOTE | 2018-08-24 09:40 | NUR ---
CALLED AT THIS TIME FOR UPDATE, PER KEEP SEDATION OFF FOR LONG PATIENT TOLERATES AND ORDER ABG FOR TOMORROW MORNING. WILL FOLLOW OUT ORDER.
--- NOTE | 2018-08-24 14:10 | NUR ---
DR RED AT [facility], ALL UPDATES PROVIDED.
--- NOTE | 2018-08-24 14:32 | NUR ---
DR MURDOCK AT BEDSIDE, ALL UPDATES PROVIDED.
--- NOTE | 2018-08-24 15:53 | NUR ---
PATIENT HAD A WATERY, LARGE BROWN BOWEL MOVEMENT. PATIENT CLEANSED, LINENS CHANGED.
--- NOTE | 2018-08-24 16:22 | NUR ---
PATIENT HAS A TEMPERATURE OF 101.5, ON TWO READINGS. PATIENT WAS GIVEN TYLENOL, SEE EMAR. AND COOLING MEASURES WERE APPLIED. WILL CONTINUE TO MONITOR.
--- NOTE | 2018-08-24 16:44 | NUR ---
NOTIFIED OF CXR RESULTS, PER HAVE RT ADVANCE ETT 4-5 CM, GET REPEAT CXR. PER IF RT CANNOT ADVANCE, HAVE ED DR REINTUBATE PATIENT.
--- NOTE | 2018-08-24 16:57 | NUR ---
ADVANCE TUBE 4CM PER DR. PATE POST CXR FOR PLACEMENT. ETT SECURED VIA HOLISTER FROM 22 TO 26 AT THE LIP LINE.
--- NOTE | 2018-08-24 19:05 | NUR ---
RECEIVED REPORT FROM MARY JOLLEY. UPDATES PROVIDED. ALL QUESTIONS ANSWERED AND ADDRESSED. WILL RESUME CARE.
--- NOTE | 2018-08-24 19:06 | NUR ---
REPORT GIVEN TO SHOLA GRIJALVA ALL UPDATES PROVIDED.
--- NOTE | 2018-08-24 19:07 | NUR ---
RECEIVED REPORT FROM MARY JOLLEY. UPDATES PROVIDED. ALL QUESTIONS ANSWERED AND ADDRESSED. WILL RESUME CARE.
--- NOTE | 2018-08-24 19:07 | NUR ---
REPORT GIVEN TO SHOLA GRIJALVA. ALL QUESTIONS ANSWERED.
--- NOTE | 2018-08-24 19:10 | NUR ---
RECIEVED PT INTUBATED WITH NO SEDATION. UNABLE TO FOLLOW COMMANDS. RESPONDS TO TACTILE AND PAINFUL STIMULUS. RSS = 5. PUPILS 4MM IN SIZE AND SLUGGISH IN RESPONSE TO LIGHT. 8.0 ETT @ 26 LL. ETT TO VENT: VCV/AC MODE = 550 VT, 16 RATE, 5 PEEP, 30% FIO2. BREATHING EVEN AND UNLABORED. SYMMETRICAL CHEST WALL EXPANSION NOTED. NO SIGNS OF RESP DISTRESS NOTED. NORMAL SINUS RHYTHM. NO S/S OF CHEST PAIN PER FLACC. RIJ NERI CATHETER INTACT AND SECURED, DRESSING CDI. OGT INTACT AND SECURED WITH GREEN OUTPUT NOTED TO SUCTION CANISTER. TRACHEA MIDLINE. NO JVD PRESENT. SKIN IS WARM/MOIST, ESCOTO/BROWN IN COLOR. +1 EDEMA NOTED TO BUE AND BLE. ABD IS ROUND AND DISTENDED. NO S/S OF N/V OR ABD PAIN. F/C INTACT AND DRAINING VIA GRAVITY. URINE IS HERB IN COLOR. POOR OUTPUT NOTED. NO PENILE DISCHARGE OR SCROTAL EDEMA NOTED. X3 SIDE RAILS UP, BED IN LOWEST POSITION, HOB 30 DEGREES, CALL LIGHT WITHIN REACH. SIGNIFICANT OTHER AND FAMILY AT BEDSIDE.
--- NOTE | 2018-08-24 20:15 | NUR ---
PT TEMPERATIRE OF 101.6. COOLING MEASURES IN PLACE AND MEDICATED WITH TYLENOL 650 MG PER EMAR. WILL CONTINUE TO MONITOR.
[2018-08-25] VITALS (18 sets, daily range): BP systolic 117–160; BP diastolic 54–87
--- NOTE | 2018-08-25 01:40 | NUR ---
PT HAD A LARGE SOFT AND DARK BROWN/GREEN STOOL. PT CLEANED, COMPLETE BED BATH GIVEN, LINENS CHANGED, MAHONEY CARE COMPLETED, AND CHG WIPES APPLIED. AFTER TURNING HIM SUPINE, PT THEN HAD A LARGE WATERY LOOSE BM AGAIN. FLEXISEAL OBTAINED AND INSERTED, DRAINING DARK BROWN WATERY STOOL. PT TOLERATED WELL. X2 COMPLETE BED BATH, LINENS CHANGED, AND GOWN CHANGED. WILL CONTINUE TO MONITOR.
[2018-08-25 05:31] LABS: PLATELET COUNT 179 x10^3mcL (130-400)
[2018-08-25 05:34] LABS: BASOPHIL % 0 % (0-2); RED CELL DISTRIBUTION WIDTH 16.5 % (11.5-14.5)
[2018-08-25 05:50] LABS: POTASSIUM SERUM 4.2 mmol/L (3.5-5.1)
[2018-08-25 05:55] LABS: CREATININE SERUM 6.3 mg/dL (0.7-1.3)
[2018-08-25 05:56] LABS: CALCIUM 5.5 mg/dL (8.5-10.1)
--- NOTE | 2018-08-25 06:03 | NUR ---
CRITICAL LAB VALUES: CREAT - 6.3, BUN - 67, CA - 5.5. DR. OCONNOR MADE AWARE VIA PAGE GATE.
--- NOTE | 2018-08-25 06:28 | NUR ---
PTT OF 23.4. 7700 UNIT BOLUS RECEIVED AND HEPARIN INCREASED TO 2300 UNITS/HR. PTT REORDERED IN 4 HOURS.
--- NOTE | 2018-08-25 07:00 | NUR ---
RESTRAINTS OFF TO BL WRISTS.
--- NOTE | 2018-08-25 08:35 | NUR ---
AX TEMPT 100.5, WILL MEDICATE PER EMAR. COOLING MEASURES IMPLEMENTED, COLD COMPRESS TO BL ARM PITS AND NO BLANKETS.
--- NOTE | 2018-08-25 08:50 | NUR ---
DEXTER JOLLEY HD AT BEDSIDE SETTING FOR HD.
--- NOTE | 2018-08-25 09:13 | NUR ---
MEDICATED PT VAI OGT, INTERMITTENT SUCTION ON HOLD.
--- NOTE | 2018-08-25 09:21 | NUR ---
VENT SETTING RATE FOUND TO BE 16 PER ORDER IT'S 14, RATE SETTING CHANGED FROM 16 TO 14. MADE AWARE TO STEPHANE LEO
--- NOTE | 2018-08-25 12:12 | NUR ---
HD COMPLETED PER DEXTER RN REMOVED 3L OF FLUIDS POST HD B/P 139/79 HR 110
--- NOTE | 2018-08-25 12:13 | NUR ---
PTT 31.2 PER PROTOCOL TO REBOLUS PT 7700U OF HEPARIN AND INCREASE DRIP BY 500U, INCREASE HEPARIN FROM 2300U/HR TO 2800U/HR VERFIFIED WITH KASSY JOLELY.
--- NOTE | 2018-08-25 13:28 | NUR ---
PROVIDED UPDATES TO DR. MURDOCK RECIEVED NO NEW ORDERS.
--- NOTE | 2018-08-25 13:37 | NUR ---
PER DR. PATE TO ORDER VITAL AF 1.2 AT 10ML/HR WITH FWF 50ML Q4HRS GOAL FEED TO 35ML/HR. WILL ENTER ORDER
--- NOTE | 2018-08-25 13:55 | NUR ---
Initial Nutition Assesment: (IC04-A) LU WONG IA MR Dx: Acute pulmonary embolism PMHx: Paraplegic PSHx: None Labs: B H, BUN: 76 H, Cr: 6.3 H, Alb 2.1 L Meds: Ativan, Colace, Ditropan, Milk of magnesia, pepcid, zofran Diet: NPO (possible pancreatitis) PO Intake: NPO since admission Ht: 68 in Wt: 308# BMI: 46.9 Bed scale: IBW: 154# %IBW: 200% UBW: 250# Age: 32 Food Allergies: NKFA Skin: Skin warm to touch. Optifoam to sacral is CDI. Christopher: 10 Edema: BUE, BLE GI: intermittent suction OGT. Dark green output noted. Last BM: loose, large watery (08/25) RD Visit (08/25): Visited pt, spoke with significant other. SO stated pt's UBW is around 250#, has no allergies, and has not noticed any wt change. Pt has been NPO since admission. Pt has been cleared by GI to begin TF via OG tube, per RN. RN stated will start Vital 1.2 @30 mL/hr and will increase per pt tolerate, RD will adjust as recommended. No plan to run propofol at this time. Problem with N/V/D/C: None Problems with: Chewing: NPO Swallowing: NPO Current appetite: NPO Recent wt change: Not able to assess %wt change: Not able to assess Vitamin/supplement use: None Special diet at home: None Physical activity: N/A Nutrition education given: None given at this time. Food-drug interactions: Ativan: limit caffeine <400-500 mg. MOM/Colace: high fiber w/ 1.5-2 L/day to prevent consitpation. Education given: None given at this time. Estimated Nutrirtional Needs Based on body weight 140kg: Energy: 3790-4842 kcal/d (25-30 kcal/kg) vs 2734 kcal/day ([address]. Equation for ventilator) Protein: 140-168 g/d (1.0-1.2 g/kg) Fluid: 0631-1669 mL/d (1 mL/kcal) Nutrition Diagnosis: Inadequate protein-energy intake r/t NPO status AEB no nutrition >3 days. Intervention: 1. If already started, adjust TF via OG tube to Jevity 1.2 @30 mL/hr to goal of 90 mL/hr: increase rate by 10mL Q6hrs, per pt tolerate. a. This will provide 2160 mL, 2592 kcal, 120g Pro, 1743 mL H20 2. Add ProSource BID. a. This will provide 120 kcal, 30g Pro 3. Add 150mL H20 flush Q4hrs. 4. Total TF will provide: 2712 kcal, 150g Pro, 2643mL H20 Monitor/Evaluate: Goal: PO Intake at least 75% of estimated needs Monitor: PO intake, Labs, GI function F/U in 2-3 days at high risk
--- NOTE | 2018-08-25 15:30 | NUR ---
RECEIVE PATIENT FROM RN MIN.
--- NOTE | 2018-08-25 16:00 | NUR ---
REASSESSMENT DONE. OBTUNDED. AROUSABLE TO PAIN STIMULI BUT DOES NOT FOLLOW COMMAND. NO SIGNS OF PAIN OR AGITATION. ON VENTILATOR, TOLERATING CURRENT SETTINGS WELL. O2 SAT 100%. SR ON MONITOR. SBP IN 140'S-160'S. NO ECTOPY NOTED. OGT PATENT, INTACT, AND CLAMPED. FC PATENT, INTACT, AND DRAINING SMALL AMOUNT OF DARK HERB URINE. RECTAL TUBE PATENT, INTACT, AND DRAINING BROWN LIQUID STOOL. HOB ELEVATED. AT BEDSIDE. UPDATED OF STATUS AND PLAN OF CARE. WILL CONTINUE TO MONITOR.
--- NOTE | 2018-08-25 16:16 | NUR ---
SCREEN FOR LOW MEGAN SCALE CHART REVIEW DONE WITH THIS 32 Y/O MALE PT READMITTED TO [facility] WITH INITIAL DX OF CHEST PAIN. PAST MEDICAL HX INCLUDES PARAPLEGIA FROM [facility]. YENNYIENCHRISTINA Marie AND BROTHER, MIGUEL AT BED SIDE [facility] PROVIDED THAT PT HAS A BOIL AT HOME ON HIS LEFT BUTTOCK. EXPLANS TO FAMILY THE PT. SKIN CHANGE OF CONDITION WITH PLAN OF CARE DISCUSSED. WELL CONTROL INSTRUCTOR. NOTIFIED. INTEGUMENTARY: -LEFT UPPER BUTTOCK OPEN WOUND (PREVIOUS BOIL) 0.5X0.5X0.1CM WOUND BED IS PINK, NO ODOR, AREA MOIST. -LEFT INNER BUTTOCK MAD WITH SUPERFICIAL LAYER SKIN LOSS 1X0.5X0.1CM, VICK WOUND SKIN DENUDED. -PRESSURE ULCER INJURY STAGE 2 TO RIGHT BUTTOCKS WITH MULTIPLE CLEAR FLUIDS FILLED BLISTERS, VICK WOUND SKIN DARK PURPLE WITH DEDNUDED SKIN INDICATED FURTHER DAMAGE. RECOMMENDATIONS: -KEEP SKIN DRY AND CLEAN AT ALL TIMES, PLEASE CHECK Q2H AND PRN -CLEANSE RIGHT AND LEFT BUTTOCKS WOUNDS WITH WOUND CARE SOLUTION, PAT DRY AND COVER WITH OPTIFOAM DRESSING QD AND PRN IF SOILING -APPLY HEEL PROTECTOR TO LEFT/RIGHT HEEL AT ALL TIMES -OFFLOAD LEFT HEEL BY PLACING PILLOWS UNDER CALVES UNLESS OTHERWISE CONTRAINDICATED -PRESSURE REDISTUBUTION SURFACE THERAPY -TURN AND REPOSITION Q2H, OFFLOAD SACRALCOCCYX BY TURNING RIGHT AND LEFT -CONTINUE TO FOLLOW RD RECOMMENDATIONS PLEASE CONTACT WOUND CARE NURSE FOR ANY QUESTION AND CHANGE OF WOUND CONDITION.
--- NOTE | 2018-08-25 17:51 | NUR ---
RECEIVE REPORT FROM MATIAS IN THE LABORATORY REGARDING PTT >150. VACUUM BOTTLE ASSEMBLER KARINA MADE AWARE OF THE RESULT. HEPARIN DRIP TURN OFF PER PROTOCOL. PTT IS ORDER BY VACUUM BOTTLE ASSEMBLER KARINA TO BE REPEATED AT 2000 TONIGHT.
--- NOTE | 2018-08-25 19:10 | NUR ---
RECEIVED REPORT FROM KAREEM JOLLEY. WILL RESUME CARE.
--- NOTE | 2018-08-25 19:20 | NUR ---
REPORT GIVEN TO CRUSHER PLANT OPERATOR RN, SHOLA SCOTT.
--- NOTE | 2018-08-25 19:30 | NUR ---
NEPRO OGT FEEDING INCREASED FROM 20ML/HR TO 30ML/HR. NO RESIDUAL NOTED.
--- NOTE | 2018-08-25 20:12 | NUR ---
NAVY FIGHTER PILOT AT BEDSIDE FOR BLOOD DRAW.
--- NOTE | 2018-08-25 20:50 | NUR ---
PTT 31.0. PER PROTOCOL REBOLUS 7700 UNITS AND INCREASE GTT BY 500U. HEPARIN GTT INCREASED FROM 2800U/HR TO 3300U/HR. NEW ORDER PLACED FOR PTT LAB IN 4 HOURS.
--- NOTE | 2018-08-25 23:27 | NUR ---
AXILLARY TEMP OF 101.2. PT GIVEN TYLENOL 650MG VIA OGT. COOLING MEASURES IN PLACE. WILL CONTINUE TO MONITOR.
[2018-08-26] VITALS (19 sets, daily range): BP systolic 123–169; BP diastolic 61–110
--- NOTE | 2018-08-26 01:15 | NUR ---
PTT 73.7. DECREASED HEPARIN INFUSION FROM 3300U/HR TO 3000U/HR PER PROTOCOL.
--- NOTE | 2018-08-26 01:35 | NUR ---
NEPRO OGT FEEDING INCREASED FROM 30ML/HR TO 40ML/HR. 5CC OF RESIDUAL NOTED. PT TOLERATING FEEDING WELL. NO N/V.
[2018-08-26 05:38] LABS: BASOPHIL % 0.5 % (0-2); PLATELET COUNT 263 x10^3mcL (130-400)
[2018-08-26 05:43] LABS: CALCIUM 6.8 mg/dL (8.5-10.1); CARBON DIOXIDE 20.1 mmol/L (21-32); MAGNESIUM 2.4 mg/dL (1.8-2.4); POTASSIUM SERUM 3.9 mmol/L (3.5-5.1)
[2018-08-26 05:44] LABS: RED CELL DISTRIBUTION WIDTH 15.5 % (11.5-14.5)
[2018-08-26 05:48] LABS: CREATININE SERUM 5.6 mg/dL (0.7-1.3)
--- NOTE | 2018-08-26 06:01 | NUR ---
PT AGITATED AND BP INCREASED TO 167/97(108), HR 104. GIVEN ATIVAN 2MG IVP. WILL CONTINUE TO MONITOR.
--- NOTE | 2018-08-26 06:49 | NUR ---
PTT 80.6. DECREASED HEPARIN INFUSION FROM 3000U/HR TO 2700U/HR PER PROTOCOL.
--- NOTE | 2018-08-26 07:10 | NUR ---
GAVE REPORT TO RENO JOLLEY. ALL QUESTIONS AND CONCERNS ADDRESSED.
--- NOTE | 2018-08-26 07:15 | NUR ---
RECIEVED REPORT FROM SHOLA SCOTT TO ASSUME ALL CARES. ALL QUESTIONS AND CONCERNS ADDRESSED. PATIENT IS LETHARGIC. ETT TO VENT. RESPIRATIONS ARE EQUAL AND SYMMETRICAL. NO SIGNS OF RESP DISTRESS. LEFT RADIAL ARTERIAL LINE IN PLACE AND SECURED WITH DRESSING C/D/I. IV FLUIDS INFUSING TO LEFT HAND IV WITH NO SIGNS OF INFILTRATION NOTED. HEPARIN DRIP INFUSING AT 2700 U/HR. RIJ NERI CATH IN PLACE/SECURED WITH DRESSING C/D/I. IV TO RIGHT HAND IN PLACE AND SALINE LOCKED. FLEXI-SEAL IN PLACE DRAINING WATERY BROWN STOOL VIA GRAVITY. F/C IN PLACE AND SECURED DRIANING MINIMAL TEA-COLORED URINE VIA GRAVITY. PATIENT POSITIONED SUPINE OFFLOADED WITH PILLOWS AND HOB ELEVATED 45 DEGREES. ISOGEL MATRESS IN USE. NEPRO TUBE FEEDINGS INFUSING VIA OGT. BED TO LOWEST POSITION, SIDE RAILS UP X3, CALL LIGHT WITHIN REACH. PATIENT'S GIRLFRIEND AT BEDSIDE AND SUPPORTIVE IN CARE. WILL CONTINUE TO MONITOR.
--- NOTE | 2018-08-26 09:56 | NUR ---
PTT >150. HEPARIN GTT PLACED ON HOLD AT THIS TIME. PRIMARY RN RENO MADE AWARE. PTT DRAW ORDERED FOR TWO HOURS FROM NOW
--- NOTE | 2018-08-26 10:35 | NUR ---
NEPRO TUBE FEEDINGS TITRATED UP TO 50 ML/HR. WILL CONTINUE TO MONITOR.
--- NOTE | 2018-08-26 11:02 | NUR ---
LEFT RADIAL ARTERIAL LINE DC'D WITH CATH TIP INTACT. PATIENT TOLERATED WELL. WILL CONTINUE TO MONITOR.
--- NOTE | 2018-08-26 11:55 | NUR ---
DR. MURDOCK AT BEDSIDE TO ASSESS PATIENT. UPDATES PROVIDED AND POC DISCUSSED. WILL CONTINUE TO MONITOR.
--- NOTE | 2018-08-26 12:26 | NUR ---
CALDERON, HEMODIALYSIS NURSE MADE AWARE PATIENT HAD DIALYSIS ORDERS FOR TOMORROW.
--- NOTE | 2018-08-26 15:15 | NUR ---
LAB CALLED WITH PTT 48.8. HEPARIN DRIP RESTARTED AT INITIAL RATE OF 1800 U/HR. NEXT PTT ORDERED FOR 1914. WILL CONTINUE TO MONITOR.
--- NOTE | 2018-08-26 19:05 | NUR ---
RECEIVED REPORT FROM RENO JOLLEY. ASSUMING ALL CARE
--- NOTE | 2018-08-26 19:20 | NUR ---
RECEIVED PT LAYING IN BED. PT INTUBATED AND ON NO SEDATION. PT RESPONDS TO PAINFUL STIMULI, ATTEMPTS TO ELEVATE UPPER EXTREMITIES. PT NOT FOLLOWING COMMANDS AT THIS TIME. PUPILS WITH SLUGGISH RESPONSE TO LIGHT, 4 MM BILAT, DOES NOT TRACK. PT IS LETHARGIC. NO FACIAL DROOP NOTED. GAG REFLEX PRESENT. 7.5 ETT INTACT/SECURED, 26 CM @ LL. OGT IN PLACE/SECURED. TRACHEA MIDLINE. DRY ORAL MUCOSA. ORAL CARE PROVIDED PER VAP PROTOCOL. ETT TO VENT. VENT SETTINGS: VCV/AC MODE, RATE 16, VT 550, PEEP 5, FIO2 40%. BREATHING IS E/U. COARSE CRACKLES NOTED TO BUL AND DIMIN LUNG SOUNDS NOTED TO BLL. SYMMETRICAL CHEST EXPANSION NOTED. S1/S2 HEART SOUNDS AUSCULTATED. CHEST WALL EQUAL AND SYMMETRICAL. NO S/S OF CP NOTED. HR 118, BP 133/97, MAP 118. PALPABLE PULSES X4 EXTREMITIES. SKIN IS WARM AND DRY. + 2 PITTING EDEMA NOTED TO BLE AND NONPITTING EDEMA NOTED TO BUE. LH AND RH IV'S IN PLACE WITH NS INFUSING @ 75 ML/HR AND HEPARIN GTT INFUSING @ 1800 UNITS/HR. PT ON BEDREST. GENERALIZED WEAKNESS. PT PARAPLEGIC AT BASELINE. NO JOINT SWELLING/DEFORMITY NOTED. PT ON ISOGEL MATTRESS. PT ON NEPRO TF @ 50 ML/HR WITH 50 CC FWF Q4H. GRV=15, REPLACED. TOLERATING WELL. NO N/V NOTED. ABD IS DISTENDED/FIRM. BOWEL SOUNDS ACTIVE X4 QUADRANTS. FLEXISEAL IN PLACE, DRAINING VIA GRAVITY WITH BROWN WATERY STOOL NOTED. MAHONEY IS INTACT/SECURED, DRAINING VIA GAVITY WITH DARK HERB COLORED URINE POOR. URINE OUTPUT. RIJ NERI CATH IN PLACE WITH DRESSING CDI. 2 SKIN TEARS TO SACRAL AREA ALONG WITH BLISTERS NOTED, OPTIFOAM IN PLACE. ECCYMOSIS NOTED TO BUE. PT REPOSITIONED Q2H AND PRN FOR COMFORT. FAMILY AT BEDSIDE. BED IN LOW POSITION. CALL LIGHT IN REACH. WILL CONT TO MONITOR
--- NOTE | 2018-08-26 19:26 | NUR ---
PT'S AXILLARY TEMP 102.5. PT MEDICATED WITH TYLENOL 650 MG PER EMAR. COOLING MEASURES IN PLACE. WILL CONT TO MONITOR
--- NOTE | 2018-08-26 19:37 | NUR ---
DR. OCONNOR MADE AWARE PT QUALIFIES FOR SEPSIS PER SEPSIS SCREENING. UPDATED ON PT'S CURRENT STATUS. MADE AWARE PT'S AXILLARY TEMP IS 102.5 AND PT WAS MEDICATED WITH TYLENOL PER EMAR. PT'S CURRENT HR 118. NO NEW ORDERS.
--- NOTE | 2018-08-26 21:26 | NUR ---
PTT 41.5. PT REBOLUSED 5100 UNTIS IV PER HEPARIN PROTOCOL. HEPARIN DRIP INCREASED TO 2100 UNITS/HR. PTT ORDERED FOR 01:30.
--- NOTE | 2018-08-26 22:30 | NUR ---
GRV=20. NEPRO TF ADVANCED TO 60 ML/HR WITH 50 CC FWF Q4H. WILL CONT TO MONITOR
[2018-08-27] VITALS (18 sets, daily range): BP systolic 119–184; BP diastolic 54–99
--- NOTE | 2018-08-27 01:12 | NUR ---
AXILLARY TEMP 101.4. PT MEDICATED WITH TYLENOL 650 MG PER EMAR. COOLING MEASURES REMAIN IN PLACE. WILL CONT TO MONITOR.
--- NOTE | 2018-08-27 01:45 | NUR ---
SURGICAL ELASTIC KNITTER AT BEDSIDE FOR PTT LAB DRAW
--- NOTE | 2018-08-27 02:40 | NUR ---
CALLED LAB IN REGARDS TO PTT RESULTS. PER MIXER ATTENDANT, PTT IS 55.9. HEPARIN GTT IS THERAPEUTIC X1. NO CHANGE TO CURRENT HEPRAIN DRIP PER PROTOCOL. WILL ORDER PTT FOR 06:30
--- NOTE | 2018-08-27 02:40 | NUR ---
CALLED LAB IN REGARDS TO PTT RESULTS. PER MOLD CARRIER, PTT IS 55.9. PTT IS THERAPEUTIC X1. NO CHANGE TO CURRENT HEPARIN GTT PER PROTOCOL. WILL ORDER PTT FOR 06:30
--- NOTE | 2018-08-27 02:42 | NUR ---
CALLED LAB IN REGARDS TO PTT RESULTS. PER MAMMOGRAPHY TECHNOLOGIST, PTT IS 55.9. PTT IS THERAPEUTIC X2. WILL ORDER PTT DAILY PER HEPARIN PROTOCOL. PTT ORDERED FOR 05:00
--- NOTE | 2018-08-27 03:35 | NUR ---
GRV=10. NEPRO TF ADVANCED TO GOAL RATE OF 65 ML/HR WITH 50 CC FWF Q4H. WILL CONT TO MONITOR
--- NOTE | 2018-08-27 05:32 | NUR ---
FULL BED BATH PROVIDED. GOWN AND LINENS CHANGED. PERICARE, ORAL, AND MAHONEY CARE PROVIDED. HEELS OFFLOADED. TUBE FEEDING CHANGED. FAMILY AT BEDSIDE. BED IN LOW POSITION. CALL LIGHT IN REACH. WILL CONT TO MONITOR.
[2018-08-27 05:56] LABS: PLATELET COUNT 370 x10^3mcL (130-400)
[2018-08-27 06:01] LABS: BASOPHIL % 0 % (0-2); RED CELL DISTRIBUTION WIDTH 16.8 % (11.5-14.5)
[2018-08-27 06:04] LABS: CARBON DIOXIDE 22.9 mmol/L (21-32); MAGNESIUM 2.4 mg/dL (1.8-2.4); POTASSIUM SERUM 3.7 mmol/L (3.5-5.1)
[2018-08-27 06:08] LABS: CREATININE SERUM 7.2 mg/dL (0.7-1.3)
--- NOTE | 2018-08-27 06:18 | NUR ---
CALLED LAB IN REGARDS TO PTT RESULTS. NO RESPONSE. WILL ATTEMPT TO CALL AGAIN
--- NOTE | 2018-08-27 06:45 | NUR ---
CALL LAB FOR PTT LAB RESULTS WITH NO ANSWER
--- NOTE | 2018-08-27 07:00 | NUR ---
CALLED LAB FOR PTT LAB RESULTS. PER SEPTIC TANK INSTALLER, PTT 45.2. WILL ORDER PTT FOR 09:00
--- NOTE | 2018-08-27 07:05 | NUR ---
REPORT GIVEN TO RENO JOLLEY FOR CONTINUITY OF CARE. ALL QUESTIONS/CONCERNS ADDRESSED AT THIS TIME. ENDORSING ALL CARE
--- NOTE | 2018-08-27 10:38 | NUR ---
LAB CALLED WITH PTT RESULT 104.6. LAB CALLED FOR PTT TO BE REDRAWN. HEPARIN DRIP REMAINS INFUSING AT 2100 U/HR. NO CHANGES MADE. WILL WAIT FOR NEW PTT RESULT. WILL CONTINUE TO MONITOR.
--- NOTE | 2018-08-27 11:26 | NUR ---
HEMODIALYSIS DONE WITH 3L OUT. VSS. PATIENT TOLERATED WELL. WILL CONTINUE TO MONITOR.
--- NOTE | 2018-08-27 12:00 | NUR ---
RECIEVED PTT RESULT 41.4. HEPARIN 5100 UNITS IVP GIVEN, HEPARIN DRIP REMAINS INFUSING AT 2100 U/HR. NEXT PTT ORDERED FOR 1600 TODAY. CONTINUE TO MONITOR.
--- NOTE | 2018-08-27 12:00 | NUR ---
PATIENT PLACED ON C-PAP 12/26 BY RT RENATO. WILL CONTINUE TO MONITOR.
--- NOTE | 2018-08-27 12:55 | NUR ---
PATIENT'S TEMPORAL TEMP IS 100.4 F. ARBEN MILLIGAN MADE AWARE. PLAN IS NOT TO GIVE TYLENLOL, WATCH TEMP. IF TEMP IS GREATER THAN 101 F, ORDERS TO OBTAIN BLOOD CULTURES X2 (5-10 MINUTES APART) GIVEN. WILL FOLLOW AND CONTINUE TO MONITOR.
--- NOTE | 2018-08-27 13:52 | NUR ---
TEMPORAL TEMP 102.1 F. BLOOD CULTURE'S ORDERED. WILL WAIT FOR BLOOD CULTURES TO BE DONE BEFORE GIVING TYLENLOL. WILL CONTINUE TO MONITOR.
--- NOTE | 2018-08-27 14:42 | NUR ---
22 G IV WRIST IV INSERTED BY SHOLA PRADO. IV FLUSHES WELL WITH NO SIGNS OF INFILTRATION NOTED. WILL CONTINUE TO MONITOR.
--- NOTE | 2018-08-27 19:15 | NUR ---
RECIEVED REPORT FROM RENO JOLLEY. UPDATES PROVIDED. ALL QUESTIONS ANSWERED AND ADDRESED. WILL RESUME CARE.
--- NOTE | 2018-08-27 19:15 | NUR ---
RECIEVED PT INTUBATED WITH NO SEDATION. UNABLE TO FOLLOW COMMANDS. RESPONDS TO TACTILE AND PAINFUL STIMULUS. PUPILS 3MM IN SIZE AND SLUGGISH IN RESPONSE. 7.5 ETT @ 26 LL. ETT TO VENT: VCV/AC MODE = 5 PEEP, 16 RATE, 550 VT, 40% FIO2. BREATHING IS EVEN AND UNLABORED. SYMMETRICAL CHEST WALL EXPANSION NOTED. NO SIGNS OF RESPIRATORY DISTRESS NOTED. OGT INTACT AND SECURED, CONNECTED TO NEPRO TUBE FEEDING INFUSING @ 65 ML/HR WITH FWF OF 50 Q4H. TOLERATING WELL. NO S/S OF N/V OR ASPIRATION. RIJ NERI INTACT AND SECURED, DRESSING CDI. TRACHEA MIDLINE. NO JVD PRESENT. SKIN IS WARM/MOIST TO TOUCH, ESCOTO/BROWN IN COLOR. +1 NON-PITTING EDEMA NOTED TO BUE, +1 PITTING EDEMA NOTED TO BLE. ABD IS ROUND AND DISTENDED. FLEXISEAL IN PLACE AND DRAINING BROWN WATERY STOOL. F/C INTACT AND DRAINING VIA GRAVITY. URINE IS HERB IN COLOR WITH SEDIMENTS NOTED. POOR OUTPUT NOTED. NO PENILE DISCHARGE OR SCROTAL EDEMA NOTED. ECCHYMOSIS NOTED TO BUE AND JOSEPH. OPEN AND CLOSED BLISTERS NOTED TO SACRUM AREA WITH OPTIFOAM AND VERSATEL DRESSING CDI. PIV TO R HAND INTACT, PORT PATENT, DRESSING CDI. NS INFUSING @ 75 ML/HR AND HEPARIN INFUSING @ 2100 UNITS/HR. HOB 30 DEGREES, X3 SIDE RAILS UP, CALL LIGHT WITHIN REACH, BED IN LOWEST POSITION. GIRLFRIEND AT BEDSIDE.
--- NOTE | 2018-08-27 20:19 | NUR ---
PT HAS A TEMP OF 102. 650 MG OF TYLENOL GIVEN PER EMAR. COOLING MEASURES IMPLEMENTED. WILL CONT TO MONITOR.
--- NOTE | 2018-08-27 21:49 | NUR ---
PTT OF 50. NO CHANGE REQUIRED FOR HEPARIN GTT PER PROTOCOL. HEPARIN GTT REMAINS INFUSING @ 2100 UNITS/HR. WILL CONT TO MONITOR
--- NOTE | 2018-08-27 22:30 | NUR ---
DR. HAWTHORNE AT BEDSIDE. UPDATES PROVIDED AND ALL QUESTIONS ANSWERED. ORDERS TO D/C FLAGYL AND LEVAQUIN AND START ZOSYN. UA, URINALYSIS, AND RESP CULTURES TO BE COLLECTED. NO OTHER NEW ORDERS AT THIS TIME.
[2018-08-28] VITALS (18 sets, daily range): BP systolic 133–169; BP diastolic 70–98
--- NOTE | 2018-08-28 04:45 | NUR ---
FULL BED BATH GIVEN. GOWN CHANGED, LINEN CHANGED, CHG WIPES APPLIED, AND MAHONEY CARE COMPLETED. PT TOLERATED WELL. NO ACUTE SIGNS OF DISTRESS.
--- NOTE | 2018-08-28 05:26 | NUR ---
PT TEMP OF 102. ACETAMINOPHEN 650 MG GIVEN PER EMAR. COOLING MEASURES INITIATED. WILL CONT TO MONITOR
[2018-08-28 06:02] LABS: PLATELET COUNT 483 x10^3mcL (130-400); RED CELL DISTRIBUTION WIDTH 16.2 % (11.5-14.5)
[2018-08-28 06:15] LABS: BAND NEUTROPHIL 6 % (0-10); CALCIUM 7.8 mg/dL (8.5-10.1); CARBON DIOXIDE 22.2 mmol/L (21-32); MAGNESIUM 2.1 mg/dL (1.8-2.4); METAMYELOCTE 2 % (0-2); MONOCYTE 3 % (0-7); MYELOCYTE 1 % (0-2); POTASSIUM SERUM 3.4 mmol/L (3.5-5.1); SEGMENTED NEUTROPHILS 84 % (37-75)
[2018-08-28 06:17] LABS: PLATELET MORPHOLOGY PLATELETS INCREASED; rbc morphology (normal/abnorm) ABNORMAL (NORMAL)
[2018-08-28 06:19] LABS: CREATININE SERUM 5.7 mg/dL (0.7-1.3)
[2018-08-28 06:46] LABS: microscopic required? YES; urine erythrocyte 2+ (NEGATIVE)
--- NOTE | 2018-08-28 08:00 | NUR ---
RECEIVED PATIENT NOT ON SEDATION, BUT LETHARGIC. OPENED EYES ON PAINFUL STIMULUS. ON VENT MACHINE. HEPARIN DRIP 2100 UNITS/HR TO IV PORT OF 3WAY NERI CATH AT [facility]. SITE CLEAN W/ DRSG D/C/I. OT FEEDING OF NEPRO 65CC/HR W/ WATER FLUSH 50CC/Q4H, RESIDUAL CHECK 95CC, REPLACED. ABD DISTENDED/FIRM. BOWEL SOUND HYPOACTIVE. LIQUID STOOL VIA RECTAL TUBING. MAHONEY PATENT W/ HERB UOP. GENERAL EDEMA 1+ TO 2+. IVF OF NS 75CC/HR. IV SITE TO R HAND INTACT. GIRL FRIEND AT BED SIDE. CONTINUE MONITOR.
--- NOTE | 2018-08-28 10:41 | NUR ---
PT BREATHSTACKING, UNABLE TO CORRECT IT ON AC/VC AT THIS TIME, APPEARS TO POSS BE NEURO RELATED. ALARMS WIDENED DUE TO THIS, RN NOTIFIED.
--- NOTE | 2018-08-28 11:30 | NUR ---
BLOODY DRAIANGE FROM NERI CATHETER. DRSG ON CATHERTER W/ OOZING SEEN. CALLED DIALYSIS NURSE, SHOLA MOJICA TO CHECKED NERI CATH AND DRSG CHANGED BY DIALYSIS NURSE.
--- NOTE | 2018-08-28 11:48 | NUR ---
Follow-up Nutrition Assessment (IC04-A) LU WONG 32M Dx: Acute pulmonary embolism PMHx: Paraplegic Labs: K: 3.4 L, B H, BUN: 82 H, Cr: 5.7 H, Ca: 7.8 L Meds: Colace, Ditropan, milk of magnesia , Pepcid, Zofran, Zosyn Diet: Enteral nutrition: Nepro (NJtube) @65 mL/hr (1560mL, 2808kcal, 126g Pro, 1134mL H20) + 50mL FWF q4hrs (200mL ) PO Intake: NPO Weights: 308# (08/25) 297# (08/28) Skin: Christopher: 12 I/Os: 2694/3350 (08/26) 3570/825(08/27) 3462/3200 (08/28) Edema: +1 non-pitting BUE, +1 pitting BLE GI: Last BM: 08/28 morning, noted net balance +1343 RD Note (08/28): Visited pt in ICU and reviewed in huddles, poor prognosis. Pt had HD yesterday (08/27). Currently on TF (Nepro), tolerating well, no residuals noted. Diet order in chart states TF via nasojejunal tube, verified w/ RN that TF via OGtube. TF meeting pt's nutrient needs. Noted still edematous BUE/BLE and distended abdomen. Estimated Nutritional Needs: Energy: 3290-0276 kcal/day (25-30 kcal/kg) vs 2734 kcal/day ([place] [address] Equation) Protein: 140-168 g/day (1.0-1.2 g/kg) Fluid: 1294-9561 mL/day (1 mL/kcal) vs 1500mL (HD) Nutrition Diagnosis 08/25: Inadequate protein-energy intake r/t NPO status AEB no nutrition >3days. 08/28: No new nutrition diagnosis at this time. Intervention 1. Continue current plan of care. Monitor/Evaluate Goal: Have pt meet at least 75% of estimated needs Monitor: TF intake, Residuals, Labs, GI function F/U in 2-3 days as HR 08/30-08/31
--- NOTE | 2018-08-28 11:59 | NUR ---
Recommendation: 1. Continue current plan of care: Nepro 1.8 @65 mL/hr via OG tube
--- NOTE | 2018-08-28 14:10 | NUR ---
PATIENT WITH LARGE AMOUNT OF UNFORMED STOOL WHICH LEAKED AROUND FLEXISEAL ONTO BED AND LINENS. STOOL APPEARS THICK ENOUGH TO REMOVE FLEXISEAL. PATIENT PROVIDED FULL BED BATH AT THIS TIME WITH ALL LINENS AND GOWN CHANGED. FLEXISEAL REMOVED. PATIENT PLACED IN LOWEST POSITION. PRIMARY RN LAXMI MADE AWARE.
--- NOTE | 2018-08-28 16:30 | NUR ---
TEMP = 100.4 (AX). TYLENOL 650MG OT AND COOLING MEASURE GIVEN. CONTINUE MONITOR.
--- NOTE | 2018-08-28 18:30 | NUR ---
RECHECK TEMP 100.3 (AX); COOLING MEASURE CONTINUE.
--- NOTE | 2018-08-28 20:33 | NUR ---
DR. ENAMORADO AT BEDSIDE. ALL UPDATES PROVIDED. DR. ENAMORADO DISCUSSED WITH THE FAMILY THAT THE PATIENTS PROGNOSIS IS POOR. DR. ENAMORADO EXPLAINED THAT THE PATIENT SUFFERED A CARDIAC ARREST AND THEREFORE BLOOD IS NOT TRANSFERRING TO THE BRAIN IT SHOULD BE. THE FAMILY UNDERSTOOD AND SAID THAT THEY WAMT SCANS TO BE DONE, TO CONFIRM. DR. ENAMORADO STATED THAT MANY SCANS CAN BE DONE, BUT THERE WILL NOT BE A POSITIVE PROGNOSIS. NO FURTHER QUESTIONS AT THIS TIME.
--- NOTE | 2018-08-28 20:39 | NUR ---
PER DR. ENAMORADO, STOP NORMAL SALINE AT THIS TIME.
--- NOTE | 2018-08-28 21:02 | NUR ---
REPORT GIVEN TO SHOLA BOJORQUEZ. ALL QUESTIONS ANSWERED.
--- NOTE | 2018-08-28 21:45 | NUR ---
RECIEVED REPORT FROM SHOLA HERNANDEZ. ALL CONCERNS ADDRESSED. RESUMED CARE OF PT. PT A&OX0. INTUBATED W/ NO SEDATION 7.5 ETT @ 26 LL AND OGT TUBE FEEDING @ 65ML/HR. VENTED TO AC MODE VT, 550, FIO2 40%, PEEP 5, RATE 16. EDEMA +2 BLE AND NONPITTING EDEMA BLE. RIJ JOSE CDI. NSR - SINUS TACHY. 2 SKIN TEARS W/ BLISTERS TO SACRAL AREA W/ OPTIFOAM INTACT. NPO W/ TUBE FEEDING NEPRO @ 65ML/HR NO RESIDUAL. N/S 75ML/HR. HEPARIN @ 2100 UNITS/HR. NO GAG REFLUX. F/C SECURE & INTACT W/ YELLOW URINE OUTPUT.
--- NOTE | 2018-08-28 22:39 | NUR ---
FAMILY NOTIFIED OF A FAMILY MEETING @ 0922 08/29/18. REQUESTED THAT THE SPEAKER MOUNTER BE THERE. NOTIFIED FAMILY OF POOR PROGNOSIS AND POSSIBLITY OF BRAIN . FAMILY ACCEPTING AND NOTIFIED FOR DISCUSSION OF POC. WILL ENDORSE.
--- NOTE | 2018-08-28 23:35 | NUR ---
PT GIVEN PRN TYLENOL (*SEE MAR*) FOR TEMP 101.5. PT TOLERATING WELL. WILL REASSESS.
[2018-08-29] VITALS (18 sets, daily range): BP systolic 123–168; BP diastolic 63–95
--- NOTE | 2018-08-29 00:18 | NUR ---
PT CHANGED W/ LIQUID BM. ESTIMATED AT 2L LIQUID. NOTED LIQUID BM AND CHANGED LINENS, SHEETS AND GOWN. WILL CONT TO MONITOR.
--- NOTE | 2018-08-29 00:19 | NUR ---
DR HAWTHORNE @ BEDSIDE. NURSING UPDATES. NO NEW ORDERS @ THIS TIME.
--- NOTE | 2018-08-29 01:33 | NUR ---
TEMP 99.5. CHANGED LINENS PT W/ LIQUID BM. WILL CONT TO MONITOR.
--- NOTE | 2018-08-29 02:52 | NUR ---
NO ACUTE CHANGES. PT RESTING CALMLY IN BED W/ FAMILY @ BEDSIDE. WILL CONT TO MONITOR.
--- NOTE | 2018-08-29 05:00 | NUR ---
FOURDRINIER TENDER @ BEDSIDE FOR AM LABS.
[2018-08-29 05:26] LABS: PLATELET COUNT 538 x10^3mcL (130-400); RED CELL DISTRIBUTION WIDTH 16.1 % (11.5-14.5)
[2018-08-29 05:30] LABS: BAND NEUTROPHIL 6 % (0-10); METAMYELOCTE 2 % (0-2); MONOCYTE 3 % (0-7); MYELOCYTE 1 % (0-2); PLATELET MORPHOLOGY PLATELETS INCREASED; SEGMENTED NEUTROPHILS 84 % (37-75); rbc morphology (normal/abnorm) ABNORMAL (NORMAL)
--- NOTE | 2018-08-29 05:31 | NUR ---
LAB NOTIFIED OF CRITICAL VALUE WBC 31.0. NOTED AND PAGED ANASTASIA.
[2018-08-29 05:40] LABS: CALCIUM 8.1 mg/dL (8.5-10.1); CARBON DIOXIDE 18.7 mmol/L (21-32); POTASSIUM SERUM 3.2 mmol/L (3.5-5.1)
[2018-08-29 06:18] LABS: CREATININE SERUM 6.2 mg/dL (0.7-1.3)
--- NOTE | 2018-08-29 07:35 | NUR ---
RECEIVED PT'S REPORT FROM LEAVING NURSE. PT'S GIRL FRIEND AT BEDSIDE. PT HAD WARTERY BM, CLEANED AND CHANGED OPTIFORM ON SACRAL. PT'S EYES OPEN, PUPILS FIXED. PT BREATHING ON VENT, EVEN UNLABOED AT THIS TIME. MAHONEY IN PLACE, DRAINING VIA GRAVITY, URINE YELLOW. PT ON NEPRO TUBE FEEDING, 65ML/HR, WFW 50ML Q4. HEPARIN DRIP INFUSING AT 2100U/HR. WILL CONTINUE TO MONITOR.
--- NOTE | 2018-08-29 07:45 | NUR ---
RECEIVED PT'S REPORT FROM LEAVING NURSE. PT'S GIRL FRIEND AT BEDSIDE. PT HAD WARTERY BM, CLEANED AND CHANGED OPTIFORM ON SACRAL. PT'S EYES OPEN, PUPILS SLUGGISH TO LIGHT . PT BREATHING ON VENT, EVEN UNLABOED AT THIS TIME. MAHONEY IN PLACE, DRAINING VIA GRAVITY, URINE YELLOW. PT ON NEPRO TUBE FEEDING, 65ML/HR, WFW 50ML Q4. HEPARIN DRIP INFUSING AT 2100U/HR. WILL CONTINUE TO MONITOR.
--- NOTE | 2018-08-29 09:24 | NUR ---
CHEL THEODORE, MYSELF AND PATIENT'S FAMILY IN ICU CONFERENCE ROOM FOR FAMILY MEETING. CHEL THEODORE DISCUSSED WITH THE FAMILY PATIENT'S PROGNOSIS AND OPTIONS IN MOVING FORWARD WITH POC. TRACH/PEG VS PALLIATIVE CARE DISCUSSED IN DETAIL WITH FAMILY. ALL QUESTIONS AND CONCERNS ADDRESSED. FAMILY WILL ADVISE CHEL THEODORE ONCE THEY HAVE MADE A DECISION.
--- NOTE | 2018-08-29 10:45 | NUR ---
HD NURSE AT BEDSIDE, START DIALYSIS. PT'S EYES OPEN, BUT NOT FOLLOW ANY COMMNAD.
--- NOTE | 2018-08-29 15:49 | NUR ---
PT'S TEMP 101.1, COOLING MEASURE APPLIED. TYLENOL GIVEN PER PRN ORDER. WILL CONTINUE TO MONITOR.
--- NOTE | 2018-08-29 17:06 | NUR ---
RECHECKED PT'S TEMP STILL 101. ICE PACK APPLIED. WILL CONTINUE TO MONITOR.
--- NOTE | 2018-08-29 18:41 | NUR ---
PT HAD BM, LOOSE/WATERY STOOL. URINE OUTPUT 600ML. PT'S FAMILY MEMBERS AT BEDSIDE. PT BREATHING ON VENT AC MODE, NO DISTRESSED NOTED. PT'S TEMP RECHECKED 100.9. HEPARIN INFUSING AT 2100 UNITS/HR. WILL ENDORSE COMING NURSE TO CONTINUE MONITOR.
--- NOTE | 2018-08-29 19:05 | NUR ---
RECEIVED REPORT FROM LUTHER JOLLEY. WILL RESUME CARE.
--- NOTE | 2018-08-29 19:45 | NUR ---
DR. ENAMORADO AT PT BEDSIDE DICUSSING WITH PT'S AND FATHER ABOUT PT PROGNOSIS. NO NEW ORDERS AT THIS TIME.
--- NOTE | 2018-08-29 23:08 | NUR ---
TEMP 100.5. PT RECEIVED TYLENOL 650MG VIA OGT. COOLING MEASURES IN PLACE. WILL CONTINUE TO MONITOR.
[2018-08-30] VITALS (20 sets, daily range): BP systolic 112–145; BP diastolic 40–87
--- NOTE | 2018-08-30 02:12 | NUR ---
RT BERGER AT BEDSIDE ASSESSING PT.
--- NOTE | 2018-08-30 03:23 | NUR ---
PT RESTING COMFORTABLY IN BED. NO S/SX OF ANY PAIN OR DISCOMFORT NOTED. BREATHING E/U. AT BEDSIDE. WILL CONTINUE TO MONITOR.
--- NOTE | 2018-08-30 04:55 | NUR ---
BRIQUETTE MACHINE OPERATOR HELPER AT BEDSIDE FOR BLOOD DRAW.
--- NOTE | 2018-08-30 05:30 | NUR ---
MAHONEY CATHETER CARE PROVIDED. URINE OUTPUT 600ML. PT HAD LARGE LOOSE BM. LINENS AND GOWN CHANGED. PT REPOSITIONED TO A SUPINE POSITION FLOATED ON PILLOWS, BONY PROMINENCES OFFLOADED. BED IN LOW POSITION. CALL LIGHT WITHIN REACH.
[2018-08-30 05:35] LABS: PLATELET COUNT 620 x10^3mcL (130-400); RED CELL DISTRIBUTION WIDTH 16.1 % (11.5-14.5)
[2018-08-30 05:38] LABS: CARBON DIOXIDE 23.4 mmol/L (21-32); MAGNESIUM 1.8 mg/dL (1.8-2.4); PHOSPHOROUS 6.3 mg/dL (2.5-4.9)
[2018-08-30 05:44] LABS: CREATININE SERUM 4.9 mg/dL (0.7-1.3); POTASSIUM SERUM 2.8 mmol/L (3.5-5.1)
[2018-08-30 05:51] LABS: BAND NEUTROPHIL 5 % (0-10); METAMYELOCTE 12 % (0-2); MONOCYTE 3 % (0-7); MYELOCYTE 6 % (0-2); SEGMENTED NEUTROPHILS 69 % (37-75)
[2018-08-30 05:53] LABS: PLATELET MORPHOLOGY PLATELETS INCREASED; rbc morphology (normal/abnorm) ABNORMAL (NORMAL)
--- NOTE | 2018-08-30 07:02 | NUR ---
GAVE REPORT TO LUTHER JOLLEY. ALL QUESTIONS AND CONCERNS ADDRESSED.
--- NOTE | 2018-08-30 07:52 | NUR ---
RECEIVED PT'S REPORT FROM LEAVING NURSE. PT'S AT BEDSIDE. PT OPEN EYES TO TACTILE AND AUDITORY STIMULI. PT BREATHING ON VENT AC MODE, O2 SAT 100%. PT IS ON TUBE FEEDING AT 65ML/HR WFW 50ML Q4H. RESIDULE CHECKED 60ML, REPLACED. MAHONEY IN PLACE DRAINING VIA GRAVITY, URINE COLOR YELLOW. PT HAD BM LOOSE TO WATERY, APPLIED Z-GUARD TO SACRAL AREA, OPTIFORM DRESSING CHANGED. PT'S TEMP 98.8 ORAL AT THIS TIME. HEPARIN INFUSING AT 2100 UNITS/HR. WILL CONTINUE TO MONITOR.
--- NOTE | 2018-08-30 08:39 | NUR ---
RT LOWER VENT FIO2 FROM 40% TO 30%. PT'S O2 SAT 100%. WILL CONTINUE TO MONITOR.
--- NOTE | 2018-08-30 11:21 | NUR ---
PT TEMP 100.9, COOLING MEASURES APPLIED. WILL GIVE TYLENOL PER PRN ORDER. PT'S DAD AT BEDSIDE.
--- NOTE | 2018-08-30 17:07 | NUR ---
PT'S TEMP 101.2, COOLING MEASURES APPLIED. WILL GIVE TYLENOL PER PRN ORDER.
--- NOTE | 2018-08-30 18:33 | NUR ---
THROUGH DAY PT HAD BM X 6, LOOSE AND WATERY. PT'S TEMP RECHECKED 99.7. PT TOLERATED WELL ON FIO2 30%, O2 SAT REMAINING GREATER THAN 96%. PT TOLERATE TUBE FEEDING. HEPARIN REMAIN AT 2100 UNITS/HR, WILL ENDORSE COMING NURSE TO CONTIMUE MORNITOR.
--- NOTE | 2018-08-30 19:03 | NUR ---
REPORT RECIEVED FROM SHOLA SLOAN. ALL CONCERNS ADDRESSED. NURSING UPDATES. RESUMED CARE OF PT. SEE SHIFT ASSESSMENT FOR ASSESSMENT.
--- NOTE | 2018-08-30 20:11 | NUR ---
DIALYSIS STARTED BY ISREAL JOLLEY.
[2018-08-31] VITALS (18 sets, daily range): BP systolic 121–181; BP diastolic 53–84
--- NOTE | 2018-08-31 | NUR ---
DIALYSIS ENDED. REPORTED FROM RN THAT TAKEN 3L OUT.
--- NOTE | 2018-08-31 02:00 | NUR ---
PT RESTING CALMLY IN BED. NO ACUTE CHANGES. WILL CONT TO MONITOR.
[2018-08-31 05:43] LABS: RED CELL DISTRIBUTION WIDTH 16.8 % (11.5-14.5)
[2018-08-31 05:47] LABS: CALCIUM 8.2 mg/dL (8.5-10.1); CARBON DIOXIDE 23.2 mmol/L (21-32); CREATININE SERUM 3.9 mg/dL (0.7-1.3); MAGNESIUM 1.7 mg/dL (1.8-2.4); POTASSIUM SERUM 3.2 mmol/L (3.5-5.1)
--- NOTE | 2018-08-31 05:48 | NUR ---
NOTIFIED BY TYLER JOLLEY FROM LAB THAT WBCS 33.5. WILL ENDORSE TO
[2018-08-31 06:04] LABS: BAND NEUTROPHIL 9 % (0-10); METAMYELOCTE 9 % (0-2); MONOCYTE 4 % (0-7); MYELOCYTE 5 % (0-2); SEGMENTED NEUTROPHILS 70 % (37-75); rbc morphology (normal/abnorm) ABNORMAL (NORMAL)
--- NOTE | 2018-08-31 06:10 | NUR ---
NOTIFIED BY SHOLA KHAN PTT 76.4. PER HEPARIN PROTOCOL REDUCED HEPARIN DRIP FROM 2100 UNITS/HR TO 1800 UNITS/HR AND PLACED IN PTT DRAW FOR 4 HOURS FROM NOW.
--- NOTE | 2018-08-31 07:19 | NUR ---
PER RENO, CASH REGISTER OPERATOR RN, YELLOW SECRETIONS NOTED IN ORAL CAVITY. TUBE FEEDINGS OFF AT THIS TIME. AIR BOLUS AUSCULATED, KUB ORDERED TO VERIFY PLACEMENT. WILL CONTINUE TO MONITOR.
--- NOTE | 2018-08-31 08:15 | NUR ---
ARBEN MILLIGAN AT BEDSIDE TO ASSESS PATIENT. UPDATES PROVIDED AND POC DISCUSSED. ARBEN MILLIGAN SPOKE TO PATIENT'S GIRLFIREND AT BEDSIDE EXPLAINING THAT SHE WILL UNABLE TO COLLECT SPERM FROM THE PATIENT DUE TO THEM NOT BEING AND UNABLE TO OBTAIN CONSENT FROM THE PATIENT. PATIENT'S GIRLFRIEND HAD NO FURTHER QUESTIONS AND APPEARS SAD, SITTING AT THE BEDSIDE. WILL CONTINUE TO MONITOR.
--- NOTE | 2018-08-31 08:39 | NUR ---
CXR SONE AND RE-VERIFIED PLACEMENT. NO RESIDUALS NOTED VIA OGT. NEPHRO TUBE FEEDINGS RE-STARTED AT INITIAL RATE OF 20 ML/HR VIA OGT. FWF 5-0 ML Q 4 HRS. WILL CONTINUE TO MONITOR.
--- NOTE | 2018-08-31 09:24 | NUR ---
PATIENT REPOSITIONED TO RIGHT SIDE WITH HOB ELEVATED 45 DEGREES AND PILLOWS IN PLACE TO ALLEVIATE PRESSURE POINTS. PATIENT FELT WARM TO TOUCH. ORAL TEMP 101.2 F. TYLENLOL PREVIOUSLY GIVEN (SEE EMAR). ICE PACKS PROVIDED. PATIENT'S ROOM TEMPERATURE TURNED DOWN. PATIENT'S GIRLFRIEND REMAINS AT BEDSIDE. WILL CONTINUE TO MONITOR.
--- NOTE | 2018-08-31 10:12 | NUR ---
PLACED PT ON CPAP 5 WITH PSV 12 AND FIO2 30%, RN RENO AWARE.
--- NOTE | 2018-08-31 10:12 | NUR ---
PATIENT PLACED ON C-PAP 02/25 BY RT STEPHANE. CURRENT SAT 98%. WILL CONTINUE TO MONITOR.
--- NOTE | 2018-08-31 10:26 | NUR ---
TEMPERATURE RE-CHECKED 99.7 F ORALLY. WILL CONTINUE TO MONITOR.
--- NOTE | 2018-08-31 12:08 | NUR ---
Follow-up Nutrition Assessment (IC04-A) LU WONG 32M Dx: Acute pulmonary embolism PMHx: Paraplegic Labs: BG 121 H, BUN 56 H, Cr 3.9 H, RBC 2.3 L, Hgb 7.3 L, HCT 22 L Meds: Ditropan, Lactinex, Vancomycin, Zofran Diet: TF (NJ tube) Nepro @20 mL/hr to goal of 65mL/hr, 50mL Q4hrs PO Intake: NPO, TF Weights: 308# (08/31) 317# (08/30) 302# (08/29) Skin: open and closed blisters noted to sacral/buttock area w/ optifoam in place CDI; closed blister noted to R hand JOSEPH; ecchymosis noted to BUE JOSEPH; IV to R hand in place, flush well w/o signs of inflitration noted Christopher: 12 I/Os: 3684/1850 (08/29) 2563/3200 (08/30) 3391/4200 (08/31) Edema: +2 BLE, +1 BUE GI: Last BM: watery bowel stool this morning (08/31) RD note (08/31): Visited pt in ICU and reviewed in huddles, poor prognosis. Pt had HD today, needs dialysis everyday. Pt tolerating TF (Nepro via OGtube) well. TF off r/t yellow secretion noted in oral cavity, per RN (0720); restarted at initial rate 20 mL/hr to goal of 65 mL/hr (0840), no residuals noted. TF meeting patient's nutrient needs. Verified Nepro TF running @20 mL/hr with 50mL FWF Q4hrs, pt tolerating well. Estimated Nutritional Needs: Energy: 3754-4527 kcal/day (25-30 kcal/kg) vs 2787 kcal/day ([place] [address]) Protein: 140-168 g/day (1.0-1.2 g/kg) Fluid: 1720-9272 mL/day (1 mL/kcal) vs 1500 mL (HD) Nutrition Diagnosis: 08/25: Inadequate protein-energy intake r/t NPO status AEB no nutrtion >3days. 08/31: No new nutrition diagnosis at this time. Intervention 1. Continue current plan of care: Nepro @20 mL/hr to goal of 65 mL/hr, 50mL FWF Q4hrs. Monitor/Evaluate Goal: Have pt meet at least 75% of estimated needs Monitor: TF intake, residuals, Labs, GI function F/U in 2-3 days as risk HR
--- NOTE | 2018-08-31 12:14 | NUR ---
Recommendation: 1. Continue current plan of care: Nepro @20 mL/hr to goal of 65 mL/hr, 50mL FWF Q4hrs.
--- NOTE | 2018-08-31 13:42 | NUR ---
NEW HEPARIN PROTOCOL INITIATED USING THE ADJUSTED BODY WEIGHT OF 97 KG. LAST PTT WAS 28.5 AT 1045 THIS MORNING. PATIENT RE-BOLUSED WITH 7800 UNITS OF HEPARIN IVP. HEPARIN DRIP TITRATED DOWN TO 1700 U/HR. NEXT PTT ORDERED FOR 1930. WILL CONTINUE TO MONITOR.
[2018-08-31 13:59] LABS: PLATELET COUNT 695 x10^3mcL (130-400)
--- NOTE | 2018-08-31 16:10 | NUR ---
PLACED PT BACK ON A/C VC WITH PREVIOUSLY ORDERED AND CHARTED VENT SETTINGS. A/C VC 16, VT 550, PEEP +5, AND FIO2 30%
--- NOTE | 2018-08-31 16:10 | NUR ---
WOUND CARE EVALUATION NOTE: PT IS SEEN FOR WOUND CONSULT WITH REFUSAL OF MEAKASSIDY , WOUND BED IS RED, SMALL AMOUNT OF SANGINOUS DRAINAGE, NO ODOR, VICK WOUND SKIN INTACT, ERYTHEMA, AND WARM WITH SWELLING TO TOUCH, PAIN 5/10. PT. IS CRYING AND TEXTING , OFFER TO RETURN LATER TO FINISH ASSESSMENT, PT STATE" DON'T WORRY , I AM OK. PLEASE DON'T TOUCH THE WOUND.PLAN OF CARE DISCUSSED WITH PT. AND PRIMARY RN. PT. VERBALIZES UNDERSTANDING. RECOMMENDATION: -CLEANSE CELLULITIS OPEN WOUND WITH WOUND CARE SOLUTION, PAT DRY, APPLY SILVASORB GEL AND COVER WITH DRY DRESSING QD AND PRN IF SOILING
--- NOTE | 2018-08-31 19:10 | NUR ---
RECIEVED PT INTUBATED WITH NO SEDATION. UNABLE TO FOLLOW COMMANDS. RESPONDS TO TACTILE AND PAINFUL STIMULUS. RSS = 5. PUPILS 4MM IN SIZE AND SLUGGISH B/E. 7.5 ETT @ 26 LL. ETT TO VENT: VCV/AC MODE = 5 PEEP, 18 RATE, 550 VT, 30% FIO2. BREATHING EVEN AND UNLABORED. SYMMETRICAL CHEST WALL EXPANSION NOTED. NO SIGNS OF RESPIRATORY DISTRESS NOTED. OGT INTACT AND SECURED. OGT TO TUBE FEEDING: NEPRO @ 30 ML/HR WITH 50CC FWF Q4H. TOLERATING WELL WITH GRV OF 50. RIJ NERI CATH INTACT, SECURED, DRESSING CDI. TRACHEA MIDLINE. NO JVD PRESENT. NORMAL SINUS RHYTHM VIA VICE CHANCELLOR. S1/S2 HEART SOUNDS AUDIBLE. SKIN IS WARM/DRY TO TOUCH, ESCOTO/BROWN IN COLOR. CAP REFILL <3 SEC. +1 EDEMA TO BUE, +2 PITTING EDEMA TO BLE. PIV TO R HAND INTACT, PORT PATENT, DRESSING CDI. NS INFUSING @ 20 ML/HR AND HEPARIN GTT INFUSING @ 1700 UNITS/HR. ABD IS ROUND AND DISTENDED. NO S/S OF N/V. FLEXISEAL IN PLACE AND DRAINING GREEN WATERY STOOL. F/C INTACT AND DRAINING VIA GRAVITY. URINE IS YELLOW IN COLOR WITH SEDIMENTS NOTED. GEN WEAKNESS NOTED. OPTIFOAM TO BUTTOCKS IN PLACE. X3 SIDE RAILS UP, HOB 30 DEGREES, ISOGEL MATTRESS IN PLACE, CALL LIGHT WITHIN REACH, BED IN LOWEST POSITION. PT'S SIGNIFICANT OTHER REMAINS AT BEDSIDE.
--- NOTE | 2018-08-31 19:10 | NUR ---
RECIEVED REPORT FROM RENO JOLLEY. ALL QUESTIONS ANSWERED AND ADDRESSED. WILL RESUME CARE.
--- NOTE | 2018-08-31 20:41 | NUR ---
PTT OF 33. 5800 UNIT BOLUS GIVEN AND INCREASED HEPARIN GTT RATE TO 2100 UNITS/HR. PTT REDRAW FOR 2330. WILL CONT TO MONITOR
--- NOTE | 2018-08-31 23:00 | NUR ---
NEPRO TUBE FEEDING TITRATED TO 40 ML/HR TO REACH GOAL OF 65 ML/HR. GRV = 100. TOLERATING WELL. WILL CONT TO MONITOR
[2018-09-01] VITALS (17 sets, daily range): BP systolic 110–170; BP diastolic 52–89
--- NOTE | 2018-09-01 00:13 | NUR ---
DR. HAWTHORNE AT BEDSIDE. UPDATES PROVIDED. NO NEW ORDERS AT THIS TIME.
--- NOTE | 2018-09-01 00:39 | NUR ---
PTT OF 33.2. DR. OCONNOR MADE AWARE OF RESULTS AND STATED TO JUST REBOLUS 5800 UNITS AND KEEP HEPARIN GTT AT 2100 UNITS/HR. WILL CARRY OUT ORDER.
--- NOTE | 2018-09-01 04:00 | NUR ---
COMPLETE BED BATH GIVEN, CHG WIPES APPLIED, MAHONEY CARE COMPLETED, LINENS CHANGED. PT TOLERATED WELL. NO SIGNS OF ACUTE DISTRESS.
--- NOTE | 2018-09-01 05:00 | NUR ---
GRV = 80. NEPRO TUBE FEEDINGS ADVANCED TO 50ML/HR WITH 50CC FWF Q4H TO ACHIEVE GOAL OF 60ML/HR. WILL CONT TO MONITOR.
[2018-09-01 05:36] LABS: BASOPHIL % 0 % (0-2); RED CELL DISTRIBUTION WIDTH 16.7 % (11.5-14.5)
[2018-09-01 05:38] LABS: PLATELET COUNT 791 x10^3mcL (130-400)
--- NOTE | 2018-09-01 05:39 | NUR ---
CRITICAL LAB VALUES: WBC = 33.6 AND PLT = 791. DR. OCONNOR PAGED AND MADE AWARE. WAITING MEAT SERVICE TEAM MEMBER BACK.
[2018-09-01 05:49] LABS: CALCIUM 8.6 mg/dL (8.5-10.1); CARBON DIOXIDE 21.6 mmol/L (21-32); MAGNESIUM 2.1 mg/dL (1.8-2.4); POTASSIUM SERUM 3.5 mmol/L (3.5-5.1)
[2018-09-01 05:52] LABS: CREATININE SERUM 4.5 mg/dL (0.7-1.3)
--- NOTE | 2018-09-01 06:07 | NUR ---
PTT LAB VALUE OF 51.3. THERAPEUTIC VALUE. NO CHANGE AT THIS TIME. HEPARIN GTT REMAINS INFUSING @ 2100 UNITS/HR. WILL CONT TO MONITOR.
--- NOTE | 2018-09-01 06:56 | NUR ---
REPOPRT GIVEN TO RENO JOLLEY. UPDATES PROVIDED. WILL ENDORSE CARE.
--- NOTE | 2018-09-01 12:22 | NUR ---
PTT CAME BACK AT 42.1. 3900 UNIT HEPARIN IVP BOLUS GIVEN AND HEPARIN DRIP TITRATED UP TO 2300 U/HR PER PROTOCOL. NEXT PTT ORDERED FOR 1630. WILL CONTINUE TO MONITOR.
--- NOTE | 2018-09-01 18:45 | NUR ---
HEMODIALYSIS DONE WITH 3L OUT. PATIENT TOLERATED WELL. WILL CONTINUE TO MONITOR.
--- NOTE | 2018-09-01 19:15 | NUR ---
RECEIVED REPORT FROM RENO JOLLEY. ASSUMING ALL CARE
--- NOTE | 2018-09-01 20:03 | NUR ---
RECEIVED PT LAYING IN BED. PT IS INTUBATED AND ON NO SEDATION. PT IS LETHARGIC, RESPONDS TO PAINFUL STIMULI. PT FLEXES TO PAINFUL STIMULI. PT UNABLE TO FOLLOW COMMANDS/TRACK. GAG REFLEX PRESENT. PUPILS WITH SLUGGISH RESPONSE TO LIGHT, 4 MM BILAT. 7.5 ETT INTACT/SECURED 26 CM @ LL. GAURAV HE IN PLACE WITH DRESSING CDI. DRY ORAL MUCOSA. ORAL CARE PROVIDED PER VAP PROTOCOL. OGT IN INTACT/SECURED. SCANT AMOUNT OF ESCOTO SECRETIONS NOTED WHEN SUCTIONED. PT'S BREATHING IS E/U ON VENT. VENT SETTINGS: VCV AC MODE, RATE 16, VT 550, PEEP 5, FIO2 30%. LUNGS SOUND CLEAR TO BUL AND DIMIN TO BLL. SYMMETRICAL CHEST EXPANSION NOTED. S1/S2 HEART SOUNDS AUSCULTATED. CHEST WALL EQUAL AND SYMMETRICAL. NO S/S OF CP NOTED. PT CONNECTED TO FULL STATISTICAL SECRETARY, HR 120, BP 110/61 MAP 84. PALPABLE PULSES X4 EXTREMITIES. SKIN IS WARM AND DRY. + 3 PITTING EDEMA NOTED TO RIGHT FOOT AND +2 PITTING EDEMA NOTED TO LEFT FOOT. + 1 PITTING EDEMA NOTED TO BUE. RH IV IS IN PLACE INFUSING NS @ 20 ML/HR AND HEPARIN GTT @ 2500 UNITS/HR. SCD IN PLACE. PT ON BEDREST. NO JOINT SWELLING/DEFORMITY NOTED. ISOGEL MATTRESS IN PLACE. HX OF PARAPLEGIC. PT ON NEPRO TF @ 50 ML/HR WITH 50 CC FWF Q4H. GRV=20, REPLACED, TOLERATING WELL. ABD IS DISTENDED/FIRM. BOWEL SOUNDS HYPOACTIVE X4 QUADRANTS. RECTAL TUBE IN PLACE DRAINING VIA GRAVITY WITH WATERY BROWN COLORED STOOL. MAHONEY IS INTACT/SECURED, DRAINING VIA GRAVITY WITH YELLOW COLORED URINE NOTED. GAURAV HE IN PLACE, PT RECEIVED DIALYSIS TODAY AND 3 LITERS WERE REMOVED. OPEN AND CLOSED BLISTERS TO SACRAL/BUTTOCK AREA WITH OPTIFOAM IN PLACE. CLOSED BLISTER NOTED TO RIGHT HAND JOSEPH. ECCHYMOSIS NOTED TO BUE. PT REPOSITIONED Q2H AND PRN FOR COMFORT. ISOGEL MATTRESS IN PLACE. FAMILY AT BEDSIDE. BED IN LOW POSITION. CALL LIGHT IN REACH. WILL CONT TO MONITOR
--- NOTE | 2018-09-01 20:23 | NUR ---
AXILLARY TEMP 101.5. PT MEDICATED WITH TYLENOL 650 MG PER EMAR. COOLING MEASURES IN PLACE. WILL CONT TO MONITOR
--- NOTE | 2018-09-01 22:47 | NUR ---
PTT 50.6. THERAPEUTIC X1. WILL ORDER PTT FOR 03:00. HEPARIN DRIP WILL REMAIN @ 2500 UNITS/HR PER PROTOCOL
--- NOTE | 2018-09-01 23:40 | NUR ---
DR. HAWTHORNE AT BEDSIDE. UPDATED ON PT'S STATUS. NO NEW ORDERS
[2018-09-02] VITALS (18 sets, daily range): BP systolic 123–168; BP diastolic 60–98
--- NOTE | 2018-09-02 02:30 | NUR ---
GRV=0. NEPRO TUBE FEEDING ADVANCED TO 60 ML/HR WITH 50 CC FWF Q4H. WILL CONT TO MONITOR
--- NOTE | 2018-09-02 02:39 | NUR ---
AXILLARY TEMP 100.5. PT MEDICATED WITH TYLENOL 650 MG PER EMAR. COOLING MEASURES IN PLACE
--- NOTE | 2018-09-02 03:20 | NUR ---
HEAD OF TRANSPORT LOGISTICS AT BEDSIDE FOR PTT LAB DRAW
[2018-09-02 04:05] LABS: BASOPHIL % 0 % (0-2); RED CELL DISTRIBUTION WIDTH 16.6 % (11.5-14.5)
[2018-09-02 04:06] LABS: PLATELET COUNT 823 x10^3mcL (130-400)
--- NOTE | 2018-09-02 04:09 | NUR ---
CRITICAL LAB RESULTS: WBC 33, PLT 823. DR. OCONNOR MADE AWARE
--- NOTE | 2018-09-02 04:42 | NUR ---
PTT 57.2. HEPARIN DRIP THERAPEUTIC X2. WILL ORDER PTT DAILY PER HEPARIN PROTOCOL. PTT ORDERED FOR 14:00
[2018-09-02 04:47] LABS: CALCIUM 8.7 mg/dL (8.5-10.1); CARBON DIOXIDE 25.1 mmol/L (21-32); CREATININE SERUM 3.5 mg/dL (0.7-1.3)
--- NOTE | 2018-09-02 05:30 | NUR ---
FULL BED BATH PROVIDED. GOWN AND LINENS CHANGED. PERICARE, ORAL, AND MAHONEY CARE PROVIDED. HEELS OFFLOADED. SCD IN PLACE. FAMILY AT BEDSIDE. BED IN LOW POSITION. CALL LIGHT IN REACH. WILL CONT TO MONITOR
--- NOTE | 2018-09-02 07:20 | NUR ---
REPORT GIVEN TO SUSAN JOLLEY FOR CONTINUITY OF CARE. ALL QUESTIONS/CONCERNS ADDRESSED AT THIS TIME. ENDORSING ALL CARE
--- NOTE | 2018-09-02 07:45 | NUR ---
THE PATIENT OBTUNDED; EYES OPEN WITH SOME INVOLUNTARY MOVEMENT OF EYE BALLS. PATIENT IS UNABLE TO TRACK OR FOLLOW ANY SIMPLE COMMANDS. PATIENT REMAINS INTUBATED: ETT 7.[address] AND SECURED AT 26CM AT LIPLINE. ETT TO VENT VIA VCV/AC MODE: FIO2 30%, RATE 16, VT 550, PEEP 5. OGT IN PLACE AND SECURED TO ETT. OGT PLACEMENT VERIFIED WITH SOME AIR BOLUS. OGT TO TF WITH NEPRO AT 60ML/HR. 80ML OF RESIDUAL IS REPLACED. NERI CATH TO RIJ WITH DRESSING INTACT. HEPARIN DRIP AT 2500UNITS/HR. THERAPEUTIC PTT 57.2. IVF NS AT 20ML VIA HEPLOCK AT RIGHT HAND. MAHONEY CATH TO GRAVITY WITH YELLOW URINE OUTPUT. FLEXISEAL IN PLACE WITH LIQUID STOOL IN TUBE. AIR MATTRESS IN USE. SIDE RAILS UP X3. BED IS AT LOWEST POSITION. FAMILY IS AT BEDSIDE.
--- NOTE | 2018-09-02 08:10 | NUR ---
FALGUNI AUTOMATIC SPINNING LATHE OPERATOR IS AT BEDSIDE EXAMING THE PATIENT AND INFORMED OF THE PATIENT'S LAB RESULTS THIS MORNING INCLUDING POTASSIUM LEVEL 3.0.
--- NOTE | 2018-09-02 11:00 | NUR ---
TUBE FEEDING RATE INCREASED FROM 60ML/HR TO 65ML/HR TO REACH THE GOAL. RESIDUAL 60ML NOTED AND REPLACED.
--- NOTE | 2018-09-02 12:42 | NUR ---
DR. RED IS AT BEDSIDE SEEING THE PATIENT.
--- NOTE | 2018-09-02 13:50 | NUR ---
DR. MURDOCK IS AT BEDSIDE EXAMING THE PATIENT AND TALKING TO THE PATIENT'S GIRLFRIEND. DR. MURDOCK WAS UPDATED THE PATIENT'S STATUS AND LAB RESULTS THIS MORNING INCLUDING POTASSIUM LEVEL.
--- NOTE | 2018-09-02 18:30 | NUR ---
THE PATIENT WAS GIVEN A BEDBATH. MAHONEY AND NERI SITE CARE PROVIDED TO THE PATIENT. GOWN WAS CHANGED. THE FAMILY INCLUDING THE MOTHER AND GIRLFRIEND IS AT BEDSIDE WITH THE PATIENT.
--- NOTE | 2018-09-02 19:15 | NUR ---
RECIEVED REPORT FROM SHOLA KNOX. TRUPTI DISCUSSED. NURSING UPDATES. SEE SHIFT [id number] ASSESSMENT FOR ASSESSMENT.
--- NOTE | 2018-09-02 22:53 | NUR ---
NO ACUTE CHANGES. PT RESTING CALMLY IN BED. FAMILY @ BEDSIDE.
[2018-09-03] VITALS (19 sets, daily range): BP systolic 108–158; BP diastolic 52–98
--- NOTE | 2018-09-03 00:01 | NUR ---
PT RESTING CALMLY IN BED W/ THERAPIST RRT @ BEDSIDE. NO ACUTE CHANGES. WILL CONT TO MONITOR.
--- NOTE | 2018-09-03 00:14 | NUR ---
DR HAWTHORNE @ BEDSIDE. NURSING UD[PATES. POC DISCUSSED. AWAITING NEW ORDERS.
--- NOTE | 2018-09-03 03:03 | NUR ---
NO ACUTE CHANGES. GF @ BEDSIDE. PT RESTING CALMLY IN BED. WILL CONT TO MONITOR.
[2018-09-03 05:37] LABS: BASOPHIL % 0.1 % (0-2)
[2018-09-03 05:46] LABS: CARBON DIOXIDE 22.9 mmol/L (21-32); CREATININE SERUM 3.5 mg/dL (0.7-1.3)
[2018-09-03 05:47] LABS: RED CELL DISTRIBUTION WIDTH 16.5 % (11.5-14.5)
[2018-09-03 05:49] LABS: POTASSIUM SERUM 2.8 mmol/L (3.5-5.1)
--- NOTE | 2018-09-03 05:54 | NUR ---
NOTIFIED PER LAB WBC 34.1 AND PLT 895. WILL ENDORSE AND NOTIFIED CHARGE NURSE
--- NOTE | 2018-09-03 05:56 | NUR ---
NOTIFIED PER PHARM K+ 2.8. WILL ENDORSE. NOITIFIED EMAIL DEVELOPER PHIL AND APPARATUS REPAIR MECHANIC
[2018-09-03 06:12] LABS: PLATELET COUNT 895 x10^3mcL (130-400)
--- NOTE | 2018-09-03 06:28 | NUR ---
DR SALEEM NOTIFIED LAB VALUE K+ 2.8. AWAITING ORDERS.
--- NOTE | 2018-09-03 07:45 | NUR ---
THE PATIENT IS OBTUNDED; SOME INVOLUNTARY MOVEMENT OF EYE BALLS NOTED BUT PATIENT IS UNABLE TO TRACK OR FOLLOW ANY SIMPLE COMMANDS. GAG REFLEX INTACT. JOHNATHAN PUPILS WITH SLUGGISH REACTION TO LIGHT. ETT IN PLACE AND SECURED AT 26CM AT LIPLINE. ETT TO VENT VIA VCV/AC MODE: FIO2 30%, RATE 16, VT 550, AND PEEP 5. OGT IN PLACE AND SECURED TO ETT. OGT PLACEMENT VERIFIED WITH SOME AIR BOLUS. OGT FEEDING WITH NEPRO AT 65ML/HR AND FLUSHED WITH WATER 50ML EVERY 4HR. 60ML OF RESIDUAL IS REPLACED. ORAL CARE PROVIDED TO THE PATIENT. NERI CATH TO RIJ WITH DRESSING INTACT. MAHONEY CATH TO GRAVITY WITH YELLOW URINE OUTPUT. FLEXISEAL IN PLACE WITH SOME LIQUID STOOL IN THE TUBE. IVF NS VIA IV SITE TO RIGHT HAND. HEPARIN DRIP AT 2500 UNITS/HR. BED IS AT LOWEST POSITION. SIDE RAILS UP X3. GIRLFRIEND IS AT BEDSIDE.
--- NOTE | 2018-09-03 08:05 | NUR ---
HEMODIALYSIS NURSE CAME TO BEDSIDE FOR HEMODIALYSIS.
--- NOTE | 2018-09-03 11:15 | NUR ---
HEMODIALYSIS COMPLETED. 2.4L OF OUTPUT REPORTED BY HEMODIALYSIS NURSELAXMI.
--- NOTE | 2018-09-03 11:40 | NUR ---
WOUND CARE NURSEMERRILL IS AT BEDSIDE TO CHECK THE WOUNDS AT SACRAL- BUTTOCK AREAS.
--- NOTE | 2018-09-03 13:33 | NUR ---
WOUND CARE RE-EVALUATION NOTE: SKIN ASSESSMENT DONE WITH PRIMARY RN AND NOTICE OF CHANGE OF SKIN CONDITION, PHOTO TAKEN AND GIRLFRIEND WHO IS THE DESINATED FAMILY MEMBER AT BED SIDE SKIN CONDITION OBSERVED, ALL RISK FACTORS AND UNAVOIDABLE REASONS EXPLAINED, ALL QUESTIONS ANSWERED. SHE IS AGREEABLE WITH CURRENT PLAN. INTEGUMENTARY: -LEFT UPPER BUTTOCK AND INNER BUTTOCK MERGED TO ONE WOUND AND EXTEND TO SACRAL COCCYX AREA, TODAY'S ASSESSMENT : PRESSURE ULCER INJURY UN-STAGEABLE TO 5X5.5CM, WOUND BED WITH 100% YELLOW AND BROWN, MODERATE AMOUINT SEROUS DRAINAGE,NO ODOR, VICK-WOUND SKIN DENUDED SURROUNDING SKIN DTI INDICATED FURTHER DAMAGE. -PREVIOUS ASSESSMENT PRESSURE ULCER INJURY STAGE 2 TO RIGHT BUTTOCKS WITH MULTIPLE CLEAR FLUIDS BLISTER, TODAY'S ASSESSMENTIS: PRESSURE ULCER INJURY UN-STAGEABLE TO RIGHT BUTTOCK 6X5CM DARK BROWN TO BLACK SOFT SLOUGH 100% COVERED TO WOUND BED, NO ODOR,VICK-WOUND SKIN DENUDED SURROUNDING SKIN DTI INDICATED FURTHER DAMAGE. RECOMMENDATION: -CLEANSE SACRALCOCCYX, R/L BUTTOCKS UN-STAGABLE PU WITH NS. PAT DRY, APPLY SOAKED 4X4 BETADINE SOLUTION, COVER WITH DRY DRESSING, CHANGE QD AND PRN IS SOILING. -APPLY Z-GUARD TO PERIWOUND DEUNED SKIN BID AND PRN IF SOILING.
--- NOTE | 2018-09-03 13:37 | NUR ---
DR MURDOCK AT BEDSIDE TO SEE AND ASSESS PATIENT.
--- NOTE | 2018-09-03 14:10 | NUR ---
Intervention 1. Continue current Nepro at 65 cc/hr x24 hours to provide 2808 kcals/126g protein/ 50ml FWF Q4H.
--- NOTE | 2018-09-03 14:10 | NUR ---
Follow-up Nutrition Assessment: Bj Lee F/U ICU 4 Dx: Acute Pulmonary Embolism PMHx: Paraplegic Labs: (09/03) Na 147H, 2.8L, Glucos. 131H, BUN 59.0H, Creat. 3.5H, Hgb. 7.4L, Hct. 22L Meds: Lactinex, Pepcid, Sodium Chl 0.9%, Zofran, Heprain Sodium Diet: TF: Nepro @20ml/hr with a goal of 65ml/hr FWF 50ml Q4H PO Intake: NPO Weights: (09/01) 287#, (09/02) 277#, (09/03) 282#, (09/03) Bed scale: 130kg, 286# Skin: Open and closed blisters to buttocks and ecchymoses to BUE. Scabs to right hand. Christopher: 12 I/Os: (09/03) Toatl intake: 2850, Total output: 2600 Fluid balance: 250 Edema: +3 to BLE and RUE and 1+ to LUE GI: Last BM: 08/31/18 Pt Visit: Spoke with the pt's girlfriend Cristina and she said she hasn't noticed and N/V/D/C and that he has no food allergies. She said his UBW is 230-250#. Spoke with RN and she stated he is tolerating TF well @ the goal rate of 65ml/hr and has not really had any residulas. RN did state that the pt had really loose stools, but that it has been that way for days now. Current TF @ rate of 65ml/hr provides 2808kcal and 126g of protein. Estimated Nutritional Needs based on adjusted body weight of 87kg Energy Needs: 2200-2600kcal/kg (25-30kcal/kg) (For maintenance) vs 2564 (per [place]) Protein Needs: 104-121g/day (1.2-1.4) (For dialysis) Fluid Needs: per Nutrition Diagnosis 1. Inadequate protein-energy intake r/t NPO status aeb no nutrition >3 days. (Improved) Intervention 1. Continue current Nepro at 65 cc/hr x24 hours to provide 2808 kcals/126g protein/ 50ml FWF Q4H. Monitor/Evaluate Goal: Have pt meet at least 75% of estimated needs Monitor: PO intake, Labs, GI function HR F/U 09/06-09/08
--- NOTE | 2018-09-03 14:15 | NUR ---
NEW IV SITE INSERTED TO LFA WITH #22G DUE TO LEAKING OF THE OLD IV SITE AT RIGHT HAND. OLD IV HEPLOCK AT RIGHT HAND REMOVED WITH CATH TIP INTACT.
--- NOTE | 2018-09-03 14:30 | NUR ---
THE UNSTAGEABLE WOUNDS AT BUTTOCKS WERE CLEANSED WITH NS, PATTED DRY AND APPLIED PETADINE SOAKED 4X4 GAUZE; VICK DENUDED WOUND APPLIED Z-GUARD. THEN THE WHOLE AREA APPLIED WITH OPTIFOAM.
--- NOTE | 2018-09-03 15:34 | NUR ---
TYLENOL 650MG VIA OGT WAS MEDICATED TO PATIENT FOR TEMP 100.6; COOLING METHOD MAINTAINS.
--- NOTE | 2018-09-03 16:43 | NUR ---
TEMP RECHECKED 98.1 AFTER TYLENOL 650MG VIA OGT ADMINISTERED TO THE PATIENT AT 1534.
--- NOTE | 2018-09-03 18:12 | NUR ---
PATIENT'S MOTHER, FATHER AND FAMILY MEMBERS ASKED TO SPEAK WITH ME REGARDING TRACH AND PEG PLACEMENT. PATIENT'S SIGNIFICANT OTHER MARVA ALSO IN ATTENDANCE. AFTER REVIEWING TRACHEOSTOMY PLACEMENT, PATIENT'S MOTHER AND FATHER DECIDED NOT TO PROCEED WITH TRACH AND HAS OPTED FOR PALLIATIVE CARE. PATIENT'S MOTHER AND FATHER STATED THAT LIVING IN A LTAC WAS NOT WHAT THE PATIENT WOULD WANT. AFTER THE DECISION WAS MADE, PATIENT'S SIGNIFICANT OTHER BEACME VERY DISTRAUGHT AND BEGAN POUNDING HER HEAD ON THE TABLE. FAMILY ATTEMPTED TO CONSOLE HER AND WAS ABLE TO CALM HER DOWN BUT MARVA WAS RESISTANT TO THE DECISION MADE BY THE PATIENT'S PARENTS. PATIENT LEFT THE ROOM AND WENT TO THE PATIENT'S BEDSIDE SOBBING. DR SALEEM CALLED TO SPEAK WITH FAMILY TO ADDRESS CODE STATUS. FAMILY WOULD LIKE PATIENT TO BE A D.N.R. WITH NO FURTHER HEMODIALYSIS. FAMILY WOULD ALSO LIKE TO WAIT UNTIL FRIDAY TO WITHDRAW CARE PATIENT HAS TWO BROTHERS THAT LIVE OUT OF THE AREA. CODE STATUS CHANGED IN [facility] BY DR SALEEM. FALGUNI THEODORE MADE AWARE.
--- NOTE | 2018-09-03 18:27 | NUR ---
PATIENT WAS GIVEN A BEDBATH; GOWN WAS CHANGED. PATIENT REMAINS ON VENT VIA VCV/AC MODE: FIO2 30%, RATE 16, VT 550, AND PEEP 5. HEPARIN DRIP REMAINS AT 2500 UNITS/HR. THE FAMILY IS AT BEDSIDE AT THIS TIME.
--- NOTE | 2018-09-03 19:06 | NUR ---
REPORT WAS GIVEN TO DENIZ BOJORQUEZ RN. CONCERNS WERE ADDRESSED.
--- NOTE | 2018-09-03 21:36 | NUR ---
REPORT RECIEVED FROM SHOLA KNOX. ALL CONCERNS ADDRESSED. POC DISCUSSED. NOTED PT CHANGED TO DNR STATUS. SEE SHIFT ASSESSMENT FOR ASSESSMENT.
--- NOTE | 2018-09-03 21:37 | NUR ---
TUBE FEEDING CHANGED W/ NEW FEEDING TUBE USED WHERE FEEDING TRANSFERED TO 1000ML BAG.
[2018-09-04] VITALS (18 sets, daily range): BP systolic 105–159; BP diastolic 53–89
--- NOTE | 2018-09-04 00:59 | NUR ---
DR URRUTIA @ BEDSIDE. NURSING UPDATES. POC DISCUSSED. NO NEW ORDERS.
--- NOTE | 2018-09-04 02:30 | NUR ---
PT RESTING CALMLY IN BED. NO ACUTE CHANGES. WILL CONT TO MONITOR.
--- NOTE | 2018-09-04 07:15 | NUR ---
Received report from noc shift SHOLA Stanley, all questions and concerns addressed at this time, will assume all care.
--- NOTE | 2018-09-04 08:00 | NUR ---
Received patient intubated with 7.5 ett, 26 LL, on ac mode, peep 5, fi02 30%, rate 16, vt 550. Patient is not sedated, patient obtunded. Patient has RIJ marlen cath in place cdi dressing, patient with zarco cath draining to gravity yellow urine. Patient on fuel conversion technician showing nst. Patient with fever 102.3, prn tylenol provided. Patient with ogt receiving nephro 65 ml/hr with a fwf of 50 q4h, 10 ml residuals noted and returned to patient. Patient with gf at the bedside. No needs at this time.
--- NOTE | 2018-09-04 10:00 | NUR ---
Patient still having fever, 102.5, all excess pillows removed, ice packs applied at this time. Will reeval temp.
--- NOTE | 2018-09-04 10:41 | NUR ---
patient more awake at this time, patient opens eyes but does not track. Will continue to monitor pt.
--- NOTE | 2018-09-04 12:35 | NUR ---
SPOKE WITH FAMILY VIA TELELPHONE AND STATE THEY WILL BE HERE TOMORROW 09/05/18 AT 1200 TO TAKE PATIENT OFF OF LIFE SUPPORT. SHOAL JUAN MADE AWARE.
--- NOTE | 2018-09-04 12:53 | NUR ---
Patient temp going down, 100.7 axillary. Will continue to ice patient and monitor temp.
--- NOTE | 2018-09-04 16:00 | NUR ---
VS TAKEN, PT NOTED WITH TEMPERATURE= 101.3F. COOLING MEASURES IMPLEMENTED.
--- NOTE | 2018-09-04 18:33 | NUR ---
FULL BED BATH WITH CHG WIPES AND MAHONEY CARE PROVIDED PER PROTOCOL AT THIS TIME. NEW LINEN AND ICE PACKS APPLIED.
--- NOTE | 2018-09-04 18:46 | NUR ---
AX TEMP RECHECK, 100.6 AT THIS TIME.
--- NOTE | 2018-09-04 19:00 | NUR ---
RECEIVED REPORT FROM YESSICA JOLLEY. ALL QUESTIONS ANSWERED AND ADDRESSED. WILL RESUME CARE.
--- NOTE | 2018-09-04 20:00 | NUR ---
DR. ENAMORADO AT BEDSIDE ASSESSING PT. UPDATES PROVIDED. NO NEW ORDERS AT THIS TIME.
--- NOTE | 2018-09-04 21:23 | NUR ---
PT HAS A TEMP OF 102.2. TYLENOL GIVEN PER EMAR AND COOLING MEASURES IMPLEMENTED. WILL CONT TO MONITOR.
--- NOTE | 2018-09-04 22:30 | NUR ---
[facility] CALLED AND INFORMED ABOUT PT'S STATUS. GIVEN PETRA INFORMATION AND SAID THAT PATIENT IS NOT A CANDIDATE FOR [employer]. HOWEVER, IF PATIENT WERE TO BE BRAIN PRIOR TO GETTING OFF LIFE SUPPORT, THEN HE SAID TO CALL [facility] AND UPDATE THEM ON THE PT'S STATUS. IF NOT, CONTINUE TO FOLLOW REGULAR PROTOCOL AFTER PT'S . CASE #: [id number].
--- NOTE | 2018-09-04 22:31 | NUR ---
PT LEAKING STOOL FROM FLEXISEAL. FULL BED BATH GIVEN, MAHONEY CARE COMPLETED, LINENS CHANGED, AND GOWNS CHANGED. PT TOLERATED WELL. FLEXISEAL INTACT AND SECURED. WILL CONT TO MONITOR
[2018-09-05] VITALS (9 sets, daily range): BP systolic 114–154; BP diastolic 59–97; Ht 172.7 cm; Wt 123.9 kg
--- NOTE | 2018-09-05 03:02 | NUR ---
PT HAD A TEMP OF 102.2. TYLENOL GIVEN PER EMAR. COOLING MEASURES IMPLEMENTED. WILL CONT TO MONITOR.
[2018-09-05 06:09] LABS: PLATELET COUNT 730 x10^3mcL (130-400); RED CELL DISTRIBUTION WIDTH 16.8 % (11.5-14.5)
--- NOTE | 2018-09-05 06:13 | NUR ---
CRITICAL LAB VALUE: WBC = 29.7, HGB = 6.9, HCT = 20.6. DR. OCONNOR MADE AWARE AND STATES THAT SHE WILL ENDORSE TO HIGH RISK OB.
[2018-09-05 06:17] LABS: METAMYELOCTE 7 % (0-2); MONOCYTE 4 % (0-7); MYELOCYTE 3 % (0-2); SEGMENTED NEUTROPHILS 80 % (37-75)
[2018-09-05 06:18] LABS: rbc morphology (normal/abnorm) ABNORMAL (NORMAL)
[2018-09-05 06:19] LABS: PLATELET MORPHOLOGY PLATELETS INCREASED
[2018-09-05 06:22] LABS: CALCIUM 8.7 mg/dL (8.5-10.1); CARBON DIOXIDE 25.1 mmol/L (21-32); CREATININE SERUM 2.6 mg/dL (0.7-1.3)
[2018-09-05 06:24] LABS: POTASSIUM SERUM 2.9 mmol/L (3.5-5.1)
--- NOTE | 2018-09-05 06:44 | NUR ---
PTT OF 97.3. PER HEPARIN GTT PROTOCOL, REDUCED INFUSION BY 200 UNITS. HEPARIN GTT NOW INFUSING @ 2300 UNITS/HR.
--- NOTE | 2018-09-05 07:15 | NUR ---
PATIENT IN BED, BED IS TO THE LOWEST POSITION. PATIENT IS INTUBATED. 7.5 ETT AT 26 LL. PATIENT IS ON AC MODE AT A RATE OF 16, PEEP OF 5, FIO2 OF 30% AND TIDAL VOLUME OF 550. PATIENT IS BREATHING ADEQUATELY AND THERE ARE NO SIGNS OF RESPIRATORY DISTRESS. NETWORK DESIGN ARCHITECT IN PLACE, NSR. PATIENT HAS R NERI, AND LFA IV. NS IS INFUSING AT 20 ML/HR AND HEPARIN IS INFUSING AT 2500 UNIT/HR. ABDOMEN IS ROUND AND DISTENDED. MAHONEY IS INTACT AND DRAINING VIA GRAVITY. URINE IS YELLOW IN COLOR WITH FAIR OUTPUT. FLEXISEAL IS DRAINING VIA GRAVITY, WITH WATERY DARK BROWN STOOL. PATIENTS HEELS ARE OFFLOADED WITH PILLOWS. GIRLFRIEND AT BEDSIDE, PATIENT STABLE, WILL CONTINUE TO MONITOR.
--- NOTE | 2018-09-05 08:00 | NUR ---
TEMPERATURE NOTED TO BEE 100.1, COOLING MEASURES APPLIED, WILL CONTINUE TO MONITOR.
--- NOTE | 2018-09-05 08:00 | NUR ---
TEMPERATURE NOTED TO BE 100.1. COOLING MEASURES APPLIED, WILL CONTINUE TO MONITOR.
--- NOTE | 2018-09-05 13:04 | NUR ---
DR. PATE CALLED, AND WAS GIVEN ALL UPDATES. PER DR PATE HAVE MORPHINE ORDERED, 5 MG, AND INCREASE BY 2 MG EVERY 15 MIN. NO FURTHER ORDERS AT THIS TIME.
--- NOTE | 2018-09-05 13:36 | NUR ---
CALLED [facility]. TO INFORM THAT PATIENT WAS READY FOR EXTUBATION. PER FALGUNI, "OK, THANK YOU".
--- NOTE | 2018-09-05 14:00 | NUR ---
MORPHINE DRIP STARTED AT THIS TIME.
--- NOTE | 2018-09-05 14:07 | NUR ---
RT AT BEDSIDE TO START EXTUBATION.
--- NOTE | 2018-09-05 14:12 | NUR ---
EXTUBATION DONE AT THIS TIME.
--- NOTE | 2018-09-05 15:45 | NUR ---
[facility] ARRIVED, WENT THROGH PATIENTS LABS, H&P AND HISTORY. PER [facility], CALL [facility] WHEN PATIENT EXPIRES.
--- NOTE | 2018-09-05 16:50 | NUR ---
PATIENT IN BED, BED IS TO THE LOWEST POSITION. PATIENT REMAINS ON MORPHINE DRIP INFUSING AT 5 MG/HR. THERE ARE NO SIGNS OF APPARENT DISTRESS, PATIENTS VITALS: HR: 81, O2: 97, RR: 14, BP: 144/80 MAP: 88. WILL CONTINUE TO MONITOR. FAMILY AT BEDSIDE.
--- NOTE | 2018-09-05 17:13 | NUR ---
DR HAWTHORNE AT BEDSIDE, INFORMED OF PATIENT ON PALLITIVE CARE.
--- NOTE | 2018-09-05 19:08 | NUR ---
REPORT GIVEN TO SHOLA RIZO. ALL QUESTIONS ANSWERED.
--- NOTE | 2018-09-05 19:20 | NUR ---
RECEIVED PT ON PALLIATIVE CARE PER MD ORDER AND ON MORPHINE GTT @ 5 MG/HR INFUSING TO LFA IV, PORT PATENT, NO S/S OF INFILTRATION, DRESSING INTACT. FAMILY AT BEDSIDE REQUESTS NOT TO HAVE A FULL ASSESSEMENT DONE AT THIS TIME, RESIDENT MD AWARE. PT SHOWS NO S/S OF MOAN, GROAN OR GRIMACING, VITAL SIGNS: NIBP 120/59 (78), PULSE 87, RR 12, SPO2 96%, TEMPERATURE 99.1. BED AT LOWEST SETTING, HOB ELEVATED 30 DEGREES, PT ATTACHED TO FULL THERMOSTATIC CONTROLS SUPERVISOR AND PULSE OXIMETRY. CHEST RISE/FALL SYMMETRIC, E/U BREATHING NOTED, NO S/S OF RESP DISTRESS. FLEXISEAL INTACT DRAINING TO GRAVITY WATERY DARK BROWN STOOL. F/C DRAINING TO GRAVITY INTACT YELLOW URINE. OPTIFOAM INTACT TO COCCYX FOR ULCER WITH Z-GUARD INTACT. ECCHYMOSIS NOTED TO BUE. FAMILY AT BEDSIDE, TEACHING PROVIDED ON PALLIATIVE MEASURES AND POC DISCUSSED. WILL CONT TO MONITOR.
--- NOTE | 2018-09-05 23:11 | NUR ---
PT REMAINS ON PALLIATIVE CARE AND MORPHINE GTT @ 5 MG/HR, INFUSING TO LFA IV, PORT PATENT, NO S/S OF INFILTRATION, DRESSING INTACT. PT FAMILY AT BEDSIDE REQUESTS TO NOT HAVE FULL ASSESSMENT DONE AT THIS TIME. PT SHOWS NO S/S OF MOAN, GROAN OR GRIMACING, VITAL SIGNS: NIBP 114/60 (76), PULSE 94, RR 12, SPO2 93%, TEMPERATURE 98.5. BED AT LOWEST SETTING, HOB ELEVATED 30 DEGREES, PT ATTACHED TO FULL MONORAIL CRANE OPERATOR AND PULSE OXIMETRY. CHEST RISE/FALL SYMMETRIC, E/U BREATHING NOTED, NO S/S OF RESP DISTRESS. FLEXISEAL INTACT DRAINING TO GRAVITY WATERY DARK BROWN STOOL. F/C DRAINING TO GRAVITY INTACT YELLOW URINE. NO ACUTE CHANGES NOTED TO ASSESSMENT. WILL CONT TO MONITOR.
[2018-09-06 03:05] VITALS: BP 116/60
--- NOTE | 2018-09-06 03:05 | NUR ---
PT REMAINS ON PALLIATIVE CARE AND MORPHINE GTT @ 5 MG/HR, INFUSING TO LFA IV, PORT PATENT, NO S/S OF INFILTRATION, DRESSING INTACT. PT SHOWS NO S/S OF MOAN, GROAN OR GRIMACING, VITAL SIGNS: NIBP 116/60 (75), PULSE 98, RR 14, SPO2 91%, TEMPERATURE 98.0. BED AT LOWEST SETTING, HOB ELEVATED 30 DEGREES, PT ATTACHED TO FULL LABORER WHARF AND PULSE OXIMETRY. CHEST RISE/FALL SYMMETRIC, E/U BREATHING NOTED, NO S/S OF RESP DISTRESS. FLEXISEAL INTACT DRAINING TO GRAVITY WATERY DARK BROWN STOOL. F/C DRAINING TO GRAVITY INTACT YELLOW URINE. NO ACUTE CHANGES NOTED TO ASSESSMENT. WILL CONT TO MONITOR.
--- NOTE | 2018-09-06 06:35 | NUR ---
GAVE REPORT TO SHOLA MONTOYA. UPDATES PROVIDED, QUESTIONS ANSWERED.
--- NOTE | 2018-09-06 06:45 | NUR ---
PT TRANSFERRED TO [facility] BED 228B WITH NO COMPLICATIONS, PT ATTACHED TO TELE MONITOR AND CONTINUOUS PULSE OXIMETRY DURING TRANSFER ACCOMPANIED BY SHOLA MONTOYA. PT TELEBOX ATTACHED, TELE #10. MORPHINE GTT REMAINS INTACT INFUSING TO LFA, IV, PORT PATENT, NO S/S OF INFILTRATION, DRESSING CDI.
--- NOTE | 2018-09-06 06:46 | NUR ---
RECEIVED PT FROM ICU VIA BED. PT IS OBTUNDED. NOT ABLE TO FOLLOW COMMANDS/MAKE NEEDS KNOWN. GCS=4. PUPILS ARE FIXED BILAT, 3 MM. PT OPENS EYES TO PAINFUL STIMULI. RIJ NERI IN PLACE, WITH DRESSING CDI. NO DRAINAGE TO EENT. DRY ORAL MUCOSA NOTED. TRACHEA MIDLINE. BREATHING IS EVEN AND SHALLOW. SYMMETRICAL CHEST EXPANSION NOTED. LUNGS SOUND DIMIN BILAT. S1/S2 HEART SOUNDS AUSCULTATED. CHEST WALL EQUAL AND SYMMETICAL. NO S/S OF CP NOTED. VITALS: HR 120, BP 109/50, MAP 78, RR 20, SPO2 96%, TEMP 98.2. PALPABLE PULSES X4 EXTREMITIES. SKIN IS WARM AND DRY TO TOUCH. GENERALIZED EDEMA NOTED. LFA IV IN PLACE INFUSING MORPHINE GTT @ 5 MG/HR WITH NO S/S OF INFILTRATION NOTED. PT REMAINS ON PALLIATIVE CARE. PT WITH HX OF PARAPLEGIA. PT REMAINS ON ISOGEL MATTRESS. PT ON BEDREST. PT ON TURN SCHED Q2H. PT IS NPO AT THIS TIME. ABD IS DISTENDED/FIRM. BOWEL SOUNDS HYPOACTIVE X QUADRANTS. FLEXISEAL IS IN PLACE, DRAINING VIA GRAVITY WITH DARK BROWN WATERY STOOL. MAHONEY IS INTACT/SECURED, DRAINING VIA GRAVITY WITH YELLOW COLORED URINE NOTED. PRESSURE ULCER TO COCCYX AREA WITH OPTIFOAM IN PLACE, PT ON ISOGEL MATTRESS. ECCHYMOSIS NOTED TO MONICA. FAMILY AT BEDSIDE. BED IN LOW POSTIION. CALL LIGHT IN REACH. WILL ENDORSE TO CARE TO ONCOMING RN.
--- NOTE | 2018-09-06 06:57 | NUR ---
HR 117. MORPHINE DRIP TITRATED TO 7 MG/HR. WILL CONT TO MONITOR
--- NOTE | 2018-09-06 07:00 | NUR ---
REPORT GIVEN TO RENETTA JOLLEY FOR CONTINUITY OF CARE. ALL QUESTIONS/CONCERNS ADDRESSED AT THIS TIME. ENDORSING ALL CARE
--- NOTE | 2018-09-06 07:39 | NUR ---
REPORT TAKEN FROM EXECUTIVE VICE PRESIDENT OF SALES NURSE AT THE BEDSIDE. PT RESTING AT THIS TIME, NON RESPONSIVE AT THIS TIME. CHEST RISE AND FALL OBSERVED, NO CHANGES DURING THE NIGHT PER REPORT. WILL CONTINUE TO MONITOR.
--- NOTE | 2018-09-06 08:26 | NUR ---
MORPHINE DRIP INCREASED TO 8MG/H DUE TO HR OF 115, WILL CONTINUE TO MONITOR.
--- NOTE | 2018-09-06 09:20 | NUR ---
PT OBSERVED TO HAVE A HR OF 118-120 BEATS PER MINUTE. PT MEETS PARAMETERS TITRATE MORPHINE DRIP TO 10MG PER HOUR. HOWEVER THE GIRLFRIEND AT THE BEDSIDE ASKED THAT THE MORPHINE NOT BE INCREASED. DR. PATE SPOKE WITH HER AT THE BEDSIDE AND AT THIS TIME ADVISED THAT WE FOLLOW THE GIRLFRIEND'S WISHES. WILL CONTINUE TO MONITOR.
--- NOTE | 2018-09-06 09:46 | NUR ---
PT BREATH SOUNDS ARE CONGESTED AT THIS TIME, GIRLFRIEND AND BEST FRIEND AT THE BEDSIDE. GIRLFRIEND ASKED IF NURSES COULD SUCTION THE PT'S MOUTH. I WAS NOT ABLE TO SUCTION EFFECTIVELY DUE TO PT NOT BEING ABLE TO OPEN MOUTH WIDE. I ADVISED THE GIRLFRIEND THAT AN INCREASE IN THE MORPHINE DRIP WOULD MAKE TO PT MORE COMFORTABLE, BUT SHE REPORTED THAT SHE WANTS TO WAIT FOR THE FAMILY TO ARRIVE, WILL CONTINUE TO MONITOR.
--- NOTE | 2018-09-06 10:05 | NUR ---
FAMILY IS AT THE BEDSIDE, VISITING WITH THE PT.
--- NOTE | 2018-09-06 10:17 | NUR ---
PT'S GIRLFRIEND AND BEST FRIEND AGREED TO ALLOW NURSING STAFF TO INCREASE MORPHINE DRIP TO 10MG/H PER TITRATION ORDERS. PT HR IS 128 AT TIME OF INCREASE. WILL CONTINUE TO MONITOR.
--- NOTE | 2018-09-06 11:32 | NUR ---
FAMILY AT THE BEDSIDE, AUDIBLE CONGESTION NOTED WITH BREATHING. HR IS 122 AT THIS TIME, WILL CONTINUE TO MONITOR.
--- NOTE | 2018-09-06 12:33 | NUR ---
PT VITALS ASSESSED AT THIS TIME, BP 81/39, HR 128, O2 SAT UP AND DOWN 58 TO 78. PT STARTED ON 1L O2 VIA NC. VITALS ASSESSED AGAIN, BP 70/25, O2 SAT 75, HR 123. WILL CONTINUE TO MONITOR.
[2018-09-06 12:39] VITALS: BP 70/25
--- NOTE | 2018-09-06 12:40 | NUR ---
FAMILY REQUESTED THAT MORPHINE BE TRITRATED HIGHER FOR THE PT'S COMFORT, CURRENTLY AT 10MG/H, WILL INCREASE TO 11MG/H, HR 122 AT THIS TIME RR 22. WILL CONTINUE TO MONITOR.
--- NOTE | 2018-09-06 12:53 | NUR ---
PT'S FAMILY REQUESTED TO HAVE ADDITIONAL FAMILY MEMBERS AT THE BEDSIDE. FAMILY ADVISED THAT NO MOER THAN 8 VISITORS CAN BE PRESENT AT THE BEDSIDE AT A TIME. PT'S RR 15 TO 16 AT THIS TIME, FAMILY ADVISED TO SWITCH VISITORS OFTEN TO ALLOW MORE PEOPLE TO VISIT WITH THE PT. FAMILY VERBALIZED UNDERSTANDING.
--- NOTE | 2018-09-06 13:15 | NUR ---
FAMILY ASKED AGAIN TO INCREASE THE AMOUNT OF VISITORS ALLOWED AT THE BEDSIDE. DION SUP. CALLED AND ALLOWED VISITORS TO BE INCREASED TO 12. FAMILY ADVISED THAT THEY MUST STAY IN THE PT'S ROOM, AND NOSIE LEVEL MUST BE APPROPRIATE TO RESPECT OTHER PT'S IN SURROUNDING ROOMS. ALL FAMILY MEMBERS VERABLLY AGREED.
--- NOTE | 2018-09-06 15:28 | NUR ---
PT HR IS 128, RR ARE 14. PT IN NO OBSERVALBLE DISTRESS AT THIS TIME. FAMILY AT THE BEDSIDE, WILL CONTINUE TO MONITOR.
--- NOTE | 2018-09-06 16:12 | NUR ---
PT VITALS ASSESSED, FOUND TO HAVE FEVER OF 101. ICE PACKS APPLIED TO B/L SHOULDERS WITH A FACE CLOTH A BARRIER BETWEEN PACK AND SKIN. ALSO 02 SAT IS 96%. FAMILY REORTED THEY INCREASED THE PT'S OXYGEN TO 3L VIA NC. PT DOES NOT APPEAR TO BE IN DISTRESS AT THIS TIME, WILL CONTINUE TO MONITOR.
[2018-09-06 17:03] VITALS: BP 88/40
--- NOTE | 2018-09-06 17:43 | NUR ---
TEMP REASSESSED, 101.3 AT THIS TIME, DR. GERARDO WAS CALLED, OFFICE SAID THEY WILL HAVE TH DOCTOR CALL ME BACK. WILL ASK FOR ADDITIONAL ORDERS TO TREAT TEMP WHEN CALL IS RETURNED.
--- NOTE | 2018-09-06 18:52 | NUR ---
NO CHANGE TO REPORT IN PT STATUS, GCS OF 3 AT THIS TIME, RR 12, HR 120. PT IN NO VISIBLE DISTRESS AT THIS TIME. MORPHINE DRIP AT 11MG/H, WILL ENDORSE CARE TO OFFICE LEAD NURSE, FAMILY MADE AWARE THAT OFFICE LEAD WILL CONTINUE CARE FOR THE PT.
--- NOTE | 2018-09-06 19:14 | NUR ---
REPORT GIVEN TO AUGUSTINE, PT OBSERVED TO BE RESTING COMFORTABLY AT THIS TIME, CARE ENDORSED.
--- NOTE | 2018-09-06 19:30 | NUR ---
CALLED DR. MCCULLOUGH AND CLARIFIED MORPHINE ORDERS.OK TO TITRATE DOSE GREATER THAN 10MG/HR NEEDED FOR PTS COMFORT.
[2018-09-06 19:55] VITALS: BP 83/37
--- NOTE | 2018-09-06 19:55 | NUR ---
RECEIVED REPORT FROM AM NURSE. PT OBTUNDED, JOHNATHAN FIXED PUPILS RESPONSIVE TO TACTILE STIMULI, FAMILY STATED PT OPENED HIS EYES DURING THE DAY. ON TELE#10 BP83/37 HR 108, BREATHING EVEN AND NONLABORED ON O2 AT 3L NC O2 SAT 96% HOB ELEVATED, ON DNR PALLIATIVE CARE, MORPHINE DRIP AT 11MG/HR, FLACC ASSESSMENT DONE, APPEARS IN NO PAIN, NO FACIAL GRIMACING NOTED. GENERALIZED SWELLING MORE TO BLE, ABD FIRM AND DISTENDED ON FLEXISEAL WITH BROWN WATERY COLOR STOOL. MAHONEY CATHETER WITH COLOR YELLOW URINE. NERI CATH TO RIJ WITH DRESSING CDI, PT ON GUARDED CONDITION, FAMILY AND GIRLFRIEND AT BEDSIDE, EMOTIONAL SUPPOR PROVIDED AT THIS TIME, WILL CONTINUE TO MONITOR.
--- NOTE | 2018-09-06 23:07 | NUR ---
RN CALLED IN THE ROOM AND ASKED TO CHECK ON PT'S BREATHING.AUDIBLE CRACKLES NOTED.O2 SAT @ 88-91%.HOB KEPT ELEVATED.GIRLFRIEND ASKED FOR SUCTIONING AT THIS TIME.INFORMED GIRLFRIEND THAT O2 SAT MIGHT DROP WHEN SUCTIONED.UNDECIDED IF SHE WANTS SUCTIONING DONE BUT INFORMED HER PT WILL BENEFIT FROM SUCTIONING AND ALLOWED US AND WAS ABOUT TO SUCTIONED BUT PT BITING ON TUBING.GIRLFRIEND AWARE AND WANTS SUCTIONING DONE LATER.NEW MORPHINE BAG STARTED, RUNNING @ 11 MG/HR.LATEST TEMP @ 99.5F.CONTINOUS COOLING MEASURES IN PLACED.WILL CONTINUE TO MONITOR.
--- NOTE | 2018-09-07 01:30 | NUR ---
PT BREATHING EASY AND NON-LABORED.O2 @ 3L/MIN VIA N/C.GIRLFRIEND AT BEDSIDE.HR 108,RR 19.NO FACIAL GRIMACING OR MOANING NOTED.MORPHINE DRIP @ 11 MG/HR.ON GUARDED CONDITION.WILL CONTINUE TO MONITOR.
[2018-09-07 05:30] VITALS: BP 95/44
--- NOTE | 2018-09-07 06:08 | NUR ---
PT APPEARS COMFORTABLE .AUDIBLE CRACKLES HEARD.SUCTIONING VIA NASAL OFFERED BUT GIRLFRIEND AFRAID O2 SAT WILL GO DOWN.NO FACIAL GRIMACING,MOANING NOTED.MORPHINE DRIP @ 11 MG/HR.MORNING CARE AND TURNING ALSO REFUSED AT THIS TIME .PICTURE TAKING ON THE COCCYX WOUND SCHEDULED TO BE TAKEN TODAY ALSO REFUSED.REMAINS ON GUARDED CONDITION.ALL NEEDS ANTIC[PATED.WILL CONTINUE TO MONITOR.
--- NOTE | 2018-09-07 06:28 | NUR ---
LATEST TEMP @ 97.8F.WILL ENDORSE TO AM NURSE.
--- NOTE | 2018-09-07 08:00 | NUR ---
RECEIVED PATIENT RESTING IN BED, OBTUNDED. TELE #[address], ON O2 1 L/MIN VIA NC, BREATHING IS EVEN AND UNLABBORED, HOB ELEVATED. PATIENT IS CONGESTED OFFERED TO SUCTION PATIENT BUT GIRLFRIENCynthia ANN REFUSED AT THIS TIME STATED WILL NOTIFY STAFF WHEN PATIENT CAN BE SUCTIONED, WILL FOLLOW WISHES. PATIENT HAS MAHONEY CATH DRAINING TO GRAVITY TUBING FREE OF KINKS BAG IS OFF FLOOR. FLEXISEAL IN PLACE WITH BROWN WATERY STOOL. PATIENT IS TOTAL CARE, HAS HX OF PARAPLEGIA SINCE 2014, UNABLE TO DO FULL SKIN ASSESSMENT PATIENTS GIRLFRIENCynthia ANN IS REFUSING TO HAVE PATIENT TURNED AND REPOSITIONED AT THIS TIME, WILL FOLLOW UP LATER DURING SHIFT. IV TO LFA INTACT INFUSING MORPHINE DRIP AT 11 MG/HR FREE FROM REDNESS AND INFILTRATION. ALL NEEDS ATTENDED TO, SAFETY PRECAUTIONS MAINTAINED. WILL MONITOR.
--- NOTE | 2018-09-07 08:45 | NUR ---
PATIENT NOTED TO HAVE HR 118-125, PATIENT MEETS PARAMETERS TO INCREASE MORPHINE DRIP BUT GIRLFRIEND MARISSA AT BEDSIDE REFUSED AT THIS TIME. EDUCATED GIRLFRIEND MARISSA REGARDING INDICATORS TO TITRATE MORPHINE DRIP: HR GREATER THEN 100, RESPIRATIONS GREATER THEN 20, AND MOANING OR FACIAL GRIMACING, MARISSA VERBALIZED UNDERSTANDING BUT STILL REFUSED AT THIS TIME. MORPHINE DRIP REMAINS INFUSING AT 11 MG/HR. ALL NEEDS ATTENDED TO. SAFETY PRECAUTIONS MAINTAINED, WILL MONITOR.
[2018-09-07 09:20] VITALS: BP 86/30
--- NOTE | 2018-09-07 10:30 | NUR ---
PATIENTS GIRLFRIEND MARISSA AT BEDSIDE REQUESTING TO HAVE PATIENT SUCTIONED, ABLE TO SUCTION SECREATIONS ON SIDES AND FRONT OF MOUTH, PATIENT BITING DOWN AND UNLABLE TO SUCTION DEEPER. PATIENT IS ON O2 1 L/MIN VIA NC WITH O2 SAT IN THE 70'S, INCREASED OXGYEN TO 3 L/MIN VIA NC WITH O2 SAT 96%. PATIENT REMAINS COMFORTABLE, ALL NEEDS ATTENDED TO. SAFETY PRECAUTIONS MAINTAINED. WILL MONITOR.
--- NOTE | 2018-09-07 11:15 | NUR ---
PATIENTS FAMILY AND GIRLFRIEND MARISSA REQUESTING TO HAVE OXYGEN LEVELS CHECKED. PATIENT IS ON O2 3 L/MIN VIA NC WITH O2 SAT IN THE 70'S, BREATHING IS EVEN BUT EPISODES OF PAUSES NOTED, INFORMED GIRLFRIEND AND FAMILY THAT OXYGEN LEVELS WILL FLUCTUATE AND IS EXPECTED, VERBALIZED UNDERSTANDING. PATIENTS GIRLFRIEND AT BEDSIDE CLEANING PATIENTS MOUTH WITH SWABS. OFFERED TO SUCTION PATIENT BUT MARISSA REFUSED AT THIS TIME. O2 SATURATION INCREASED TO 91% ON O2 3 L/MIN VIA NC. ALL NEEDS ATTENDED TO, SAFETY PRECAUTIONS MAINTAINED. WILL MONITOR.
--- NOTE | 2018-09-07 12:35 | NUR ---
ROUNDS MADE- FAMILY AT BEDSIDE. PATIENTS MOTHER SANDRA AT BEDSIDE REQUESTING PATIENT TO BE SUCTIONED. SUCTIONED PATIENT PER MOTHERS REQUEST, WHITE SECREATIONS NOTED OUT. PER MOTHER PATIENT "SOUNDS BETTER." ALL NEEDS ATTENDED TO, SAFETY PRECAUTIONS MAINTAINED. WILL MONITOR.
[2018-09-07 13:18] VITALS: BP 81/21
--- NOTE | 2018-09-07 13:40 | NUR ---
Follow-up Nutrition Assessment: (228T-B) LU WONG 32M Dx: Acute pulmonary embolism PMHx: Paraplegic Labs: Na 152 H, K 2.9 L, Cl 111 H, BUN 46 H, Cr 2.6 H, RBC 2.19 L, Hgb 6.9 L, HCT 21 L Meds: Morphine, NaCl Diet: NPO exc Meds (Surgery 09/04 @0730) PO Intake: NPO exc Meds Weights: 273# (09/06) 269# (09/05) 279# (09/04) 282# (09/03) Skin: Ecchymosis to BUE Christopher: 8 I/Os: 571/2125 (09/06) 2069/2875 (09/05) 2745/4250 (09/04) 2850/2600 (09/03) Edema: generalized BUE/BLE GI: Flexiseal in place Last BM: 09/06 Note (09/07): Visited pt bedside, pt extubated 09/05, on palliative care. Pt's family in room, pt resting well, do s/s distress. All needs attended to, per family and girlfriend's requests. No further questions at this time. Estimated Nutritional Needs Based on adjusted body weight (83.5 kg) Energy: 6147-2047 kcal/day (30-35 kcal/kg for maintenence) vs 2564 kcal/day ([address] Protein: 100-117 (1.2-1.4 g/kg for HD) Fluid: Per MD Nutrition Diagnosis 09/03: Inadequate protein-energy intake r/t NPO status AEB no nutrition >3 days. 09/07: No new nutrition diagnosis at this time. Intervention 1. Continue current plan of care. Monitor/Evaluate Goal: Have pt meet at least 75% of estimated needs Monitor: PO intake, Labs, GI function F/U in 2-3 days as moderate risk 09/09-09/10
--- NOTE | 2018-09-07 13:40 | NUR ---
Recommendations: 1. Continue current plan of palliative care.
--- NOTE | 2018-09-07 13:50 | NUR ---
PATIENTS HR 122, FAMILY AT BEDSIDE AND AWARE. PER MOTHER SANDRA AND GIRLFRIEND MARISSA TATIANNA TO TITRATE MORPHINE DRIP NOW INFUSING AT 12 MG/HR. PATIENT SUCTIONED AND MADE COMFORTABLE. ALL NEEDS ATTENDED TO. SAFETY PRECAUTIONS MAINTAIND. WILL MONITOR.
--- NOTE | 2018-09-07 14:55 | NUR ---
PATIENT RESTING IN BED, GIRLFRIEND MARISSA AT BEDSIDE. HR 124, INCREASED MORPHINE DRIP TO 13 MG/HR, MARISSA OKAY WITH TITRATATION AND VERBALIZED UNDERSTANDING. PATIENT CONGESTED AND SUCTIONED NEEDED. ALL NEEDS ATTENDED TO, SAFETY PRECAUTIONS MAINTAINED. WILL MONITOR.
--- NOTE | 2018-09-07 17:30 | NUR ---
PATIENT RESTING IN BED, FAMILY AT BEDSIDE. PATIENT SUCTIONED NEEDED, TOLERATED WELL. PATIENTS FAMILY INFORMED PATIENTS HR STILL IN THE 120'S, MOTHER AGREED TO TITRATE MORPHINE DRIP NOW INFUSING AT 14 MG/HR. COOLING MEASURES MAINTAINED, ALL NEEDS ATTENDED TO. SAFETY PRECAUTIONS MAINTAINED. WILL MONITOR.
--- NOTE | 2018-09-07 18:15 | NUR ---
NURSE AID REPORTED PATIENT WITH ELEVATED TEMP 102.9, WENT TO ASSESS PATIENT BUT MOTHER REFUSING TO ASSESS PATIENT AT THIS TIME, WILL FOLLOW WISHES. COOLING MEASURES IN PLACE, ICE PACKS IN PLACE TO BILATERAL AUXILLARY AND AC ON. ALL NEEDS ATTENDED TO. SAFETY PRECAUTIONS MAINTAINED. WILL MONITOR.
--- NOTE | 2018-09-07 18:50 | NUR ---
WENT TO ASSESS PATIENT- FAMILY AT BEDSIDE. RECHECKED PATIENTS TEMP: 102.6 (AUXILLARY), COOLING MEASURES IN PLACE, BLANKETS OFF, AC ON, PROVIDED PATIENT WITH NEW ICE PACKS. RR 26 PER MINUTE, HR 120'S, OFFERED TO INCREASE MORPHINE DRIP TO MAKE PATIENT MORE COMFORTABLE BUT FAMILY REFUSED AT THIS TIME. IV TO LFA INTACT AND PATENT INFUSING MORPHINE DRIP AT 14 MG/HR. SUCTIONED PATIENT FOR COMFORT. ALL NEEDS ATTENDED TO, SAFETY PRECAUTIONS MAINTAINED. WILL ENDORSE CARE TO ONCOMING NURSE.
--- NOTE | 2018-09-07 19:25 | NUR ---
BEDSIDE REPORT GIVEN TO KENDRA JOLLEY, ALL QUESTIONS AND CONCERNS ADDRESSED, ALL CARES ENDORSED.
[2018-09-07 19:30] VITALS: BP 74/21
--- NOTE | 2018-09-07 19:30 | NUR ---
RECEIVED PT IN BED AND ON PALLIATIVE CARE. PT IS OBTUNDED. LUNG SOUNDS CONGESTED. ON O2 AT 3L VIA N/C. RESP=28/MIN BP=74/26 WW=483 R7WHB=64%. ON MORPHINE DRIP AT 14MG/HRVIA LTFA. W/ NERI CATH TO RTIJ INTACT. W/ GENERALIZED EDEMA NOTED. W/ MAHONEY CATH INTACT AND PATEMT. PT HAS FLEXISEAL IN PLACE W/ SCANT AMOUNT OF BM NOTED. WILL CONTINUE TO MONITOR PT. PT'S GIRLFRIEND, MOTHER AND A FAMILY FRIEND AT BEDSIDE.
[2018-09-07 21:15] VITALS: BP 76/21
--- NOTE | 2018-09-07 21:15 | NUR ---
BP=76/21 YZ=693 RR=24 O2 SAT=69% XEYY=867.0. PT APPEARS CALM. COOLING MEASURES CONTINUED. GIRLFRIEND AND FAMILY MEMBERS AT BEDSIDE.
--- NOTE | 2018-09-07 23:15 | NUR ---
RR=22/MIN. PT APPEARS CALM. PER GIRLFRIEND LEAVE PT HE IS AT THIS TIME HE APPEARS CALM. GIRLFRIEND REFUSED PT TO BE REPOSISIONED.
--- NOTE | 2018-09-08 02:59 | NUR ---
RESP=12/MIN. PT HAVING SHALLOW BREATHING. PT APPEARS CALM . GIRLFRIEND AT BEDSIDE.
--- NOTE | 2018-09-08 03:55 | NUR ---
BP=82/33 TI=538 RR=12 02 SAT=68% DEBN=187.2. PT BREATHING SHALLOW. GIRLFRIEN AT BEDSIDE AND REFUSES TO HAVE MORPHINE DRIP TITRATED . SHE STATED " LEAVE IT JUST LIKE THAT FOR NOW". MORPHINE DRIP INFUSING AT 14 MG /HR.
--- NOTE | 2018-09-08 03:59 | NUR ---
COOLING MEASURES CONTINUED FOR VUHQ=863.2 .
[2018-09-08 04:00] VITALS: BP 82/33
--- NOTE | 2018-09-08 05:17 | NUR ---
PT REMAINS ON MORPHINE DRIP AT 14 MG/HR . PT'S GIRLFRIEND WANTS DOSE TO REMAIN THE SAME FOR NOW. PT'S RESP AT 10-12 /MIN AT THIS TIME. COOLING MEASURES IMPLEMENTED ALL NIGHT . LATEST TEMP IS 100.2 . MAHONEY CATH W/ 10 CC OUTPUT. FLEXISEAL IN PLACE W/ 10 CC LIQUID STOOL IN BAG. ALL NEEDS ATTENDED TO.
--- NOTE | 2018-09-08 05:38 | NUR ---
STYLIST ASSISTANT CALLED AND SAID PT'S HEART RHYTHM WENT ASYSTOLE. PT CHECKED AND FOUND HIM NOT BREATHING CHECKED VITAL SIGNS BUT NONE OBTAINED. NO PULSES NOTED. CALLED DR. SANDS. DR. SANDS CHECKED PT AND PRONOUNCED HIM .
--- NOTE | 2018-09-08 06:00 | NUR ---
0548 ADVOCACY DIRECTOR NOTIFIED OF . 0532 ADMITTING NOTIFIED OF .
--- NOTE | 2018-09-08 06:25 | NUR ---
CALLED [facility] AND SPOKE WITH VIJAYA. CASE WAS CLOSED AND GAVE REFERRAL #[id number].
--- NOTE | 2018-09-08 06:45 | NUR ---
CALLED [employer] PUMPER TO REPORT PT'S . WAITING FOR CALL BACK.
--- NOTE | 2018-09-08 07:05 | NUR ---
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 PER AGENT BASED MODELER SHE WILL CALL BACK AFTER SHE RECEIVES THE RECORDS. ENDORSED TO AM NURSE MORIAH.
--- NOTE | 2018-09-08 07:25 | NUR ---
RECEIVED REPORT FROM KENDRA JOLLEY, ALL QUESTIONS AND CONCERNS ADDRESSED. PATIENT AT 0538, MOTHER AND GIRLFRIEND MARISSA AT BEDSIDE. EMOTIONAL SUPPORT GIVEN.
--- NOTE | 2018-09-08 08:30 | NUR ---
RECEIVED TELEPHONE CALL BACK FROM [employer] [facility]- RECEIVED CORONERS , CORONERS CASE-YES. PER DOT PATIENT MAY BE RELEASED TO [facility] WITH ALL LINES/TUBES INTACT.
== END 2018-09-08 05:38 | disposition expired | DRG 207 ==
LOC: ED 18:12 → DU 22:13 → IC 22:13 → DU 08-21 00:09 → IC 08-22 07:43 → DU 08-22 10:23 → IC 08-22 10:24 → DU 09-06 06:41
PROVIDERS: Anesthesiology; Emergency Medicine; Family Medicine; Internal Medicine; Internal Medicine Infectious Disease; Surgery; ADMIT Internal Medicine
PROC: 0BH18EZ Insertion of Endotracheal Airway into Trachea, Via Natural or Artificial Opening Endoscopic (ICD-10-PCS; 2018-08-22)
PROC: 5A12012 Performance of Cardiac Output, Single, Manual (ICD-10-PCS; 2018-08-22)
PROC: 02HV33Z Insertion of Infusion Device into Superior Vena Cava, Percutaneous Approach (ICD-10-PCS; 2018-08-22)
PROC: B548ZZA Ultrasonography of Superior Vena Cava, Guidance (ICD-10-PCS; 2018-08-22)
PROC: 5A1955Z Respiratory Ventilation, Greater than 96 Consecutive Hours (ICD-10-PCS; principal; 2018-08-22 13:15)
DX: I26.99 Other pulmonary embolism without acute cor pulmonale (principal); N17.0 Acute kidney failure with tubular necrosis; K85.90 Acute pancreatitis without necrosis or infection, unspecified; J96.01 Acute respiratory failure with hypoxia; J18.9 Pneumonia, unspecified organism; G93.1 Anoxic brain damage, not elsewhere classified; I82.431 Acute embolism and thrombosis of right popliteal vein; G82.20 Paraplegia, unspecified; K56.7 Ileus, unspecified; I48.0 Paroxysmal atrial fibrillation; I46.9 Cardiac arrest, cause unspecified; M62.838 Other muscle spasm; M54.9 Dorsalgia, unspecified; E78.5 Hyperlipidemia, unspecified; T14.90XS Injury, unspecified, sequela; S24.102S Unspecified injury at T2-T6 level of thoracic spinal cord, sequela; X93.XXXS Assault by handgun discharge, sequela; Z68.38 Body mass index [BMI] 38.0-38.9, adult; Z66 Do not resuscitate
CPT/HCPCS: 36556; 36600; 82962; 83880; 94150; A4301; A4628; B4164; G0378; J0171; J0282; J0610; J1642; J1644; J1815; J1885; J1956; J2001; J2060; J2250; J2270; J2405; J2543; J2997; J3010; J3370; J3475; J3480; J3490; J7030; Q0092; Q9967